=== PATIENT | female | born 1980 ===

== ENCOUNTER → 2020-01-11 13:01 | Outpatient (CLI) | payer OTHER, SELFPAY ==
--- NOTE | ~2020-01-11 | MM_ITS ---
EXAMINATION: MM screening [facility] BI w river HISTORY: Screening mammogram TECHNIQUE: Craniocaudal and mediolateral oblique 3-D tomosynthesis images were obtained and synthetic 2-D images were generated. CAD analysis was submitted and interpreted. COMPARISON: No prior mammogram is available for comparison at this institution. BREAST PARENCHYMAL COMPOSITION: The breasts are almost entirely fatty. FINDINGS: There is no evidence of suspicious mass, calcification, or architectural distortion to sugg est malignancy in either breast. There has been no suspicious interval change. IMPRESSION: 1. No mammographic evidence of malignancy. 2. Recommend routine screening mammography in one year. BI-RADS Category 1: Negative Reviewed, dictated and finalized at location A.
== END ==
PROVIDERS: Visit Provider Nurse Practitioner
DX: Z12.31 Encounter for screening mammogram for malignant neoplasm of breast (principal)
CPT/HCPCS: 77063; 77067

== ENCOUNTER → 2021-01-12 10:28 | Outpatient (CLI) | payer OTHER, SELFPAY ==
--- NOTE | ~2021-01-12 | MM_ITS ---
EXAMINATION: MM screening [facility] BI w river HISTORY: Screening mammogram TECHNIQUE: Craniocaudal and mediolateral oblique 3-D tomosynthesis images were obtained and synthetic 2-D images were generated. CAD analysis was submitted and interpreted. COMPARISON: No prior mammogram is available for comparison at this institution. BREAST PARENCHYMAL COMPOSITION: The breasts are almost entirely fatty. FINDINGS: There is no evidence of suspicious mass, calcification, or architectural distortion to sugg est malignancy in either breast. There has been no suspicious interval change. IMPRESSION: 1. No mammographic evidence of malignancy. 2. Recommend routine screening mammography in one year. BI-RADS Category 1: Negative Reviewed, dictated and finalized at location A.
== END ==
PROVIDERS: Visit Provider Nurse Practitioner
DX: Z12.31 Encounter for screening mammogram for malignant neoplasm of breast (principal)
CPT/HCPCS: 77063; 77067

== ENCOUNTER 2021-07-19 16:04 | Emergency (ER) | payer OTHER, SELFPAY ==
--- NOTE | ~2021-07-19 | XR_ITS ---
XR lumbar spine 2-3V DATE: 07/19/2021 16:57 INDICATION: Low back pain since injury on 07/17/2021 TECHNIQUE: AP, lateral, coned lateral lumbosacral views COMPARISON: None FINDINGS: Normal alignment lumbar spine. No fracture or bone destruction or spondylolisthesis. The cassandra mbar and included lower thoracic pedicles are intact. There is slight anterior spurring at L3-4 and L4-5. The sacroiliac joints are intact. Status post cholecystectomy. IMPRESSION: No fracture Slight degenerative change Reviewed, dictated and finalized at location A.
[2021-07-19 16:15] VITALS: BP 142/89; PULSE 74; RESP 18; TEMP 36.6; O2SAT 98
--- NOTE | 2021-07-19 16:33 | ED.BACK ---
HPI - Back Pain/Injury General Chief Complaint: Back Pain/Injury Stated Complaint: Low Back/Left Hip/Thigh/Work Comp Time Seen by Provider: 07/19/21 16:34 Source: patient Mode of arrival: ambulatory Limitations: no limitations History of Present Illness HPI Narrative: 40-year-old female presented for complaint of low back pain radiating to the left hip. 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 She has not taken anything for pain, states she does not like to take medicine for pain. Rates pain 5 out of 10. Denies numbness, tingling, or weakness of the lower extremities, denies saddle anesthesia or bowel or bladder loss. Pain is worse with sitting too long or walking too long. Related Data Home Medications Medication Instructions Recorded Confirmed rosuvastatin 10 mg PO DAILY 07/19/21 07/19/21 semaglutide [Ozempic] 1 mg SUBCUT WEEKLY 07/19/21 07/19/21 venlafaxine 150 mg PO DAILY 07/19/21 07/19/21 Allergies Allergy/AdvReac Type Severity Reaction Status Date / Time cephalexin Allergy Unknown fever,chills, Verified 07/19/21 16:25 flu like sx's. Review of Systems Review of Systems: CONSTITUTIONAL: Denies body aches, fever, chills EYES: Denies visual changes ENT: Denies rhinorrhea, congestion CARDIOVASCULAR: Denies chest pain, palpitations, or edema. RESPIRATORY: Denies cough or dyspnea. GASTROINTESTINAL: Denies abdominal pain, nausea, vomiting, or diarrhea. SKIN: Denies rash, itching, or wounds. MUSCULOSKELETAL: Reports left lower back pain NEUROLOGIC: Denies headache, numbness, tingling, or weakness. PSYCH: Denies depression or anxiety. All systems reviewed & are unremarkable except as noted in HPI and below PMFSH Comments At time of signature, I have reviewed and agree with nursing past medical, surgical, social and family history unless otherwise noted. Please see nursing chart for further information. There is no relevant family history pertinent to the presenting complaint Exam Narrative: GENERAL: Well-appearing, well-nourished, and in no acute distress. HEAD: Normocephalic, atraumatic. EYES: PERRLA, conjunctivae clear NECK: Supple. CHEST: Speaks in full sentences. No respiratory distress. HEART: Regular rate and rhythm. Normal and equal peripheral pulses. MUSC: No vertebral point tenderness, left hip with mild tenderness to palpation and posterior piriformis area. ambulatory with a steady gait. SKIN: Warm, dry, no rash. NEURO: Alert and oriented x3. PSYCH: Normal mood and affect Course Course Emergency Course: Patient is aware of diagnosis, understands and agrees to treatment plan. Anticipatory guidance given. Patient agrees to follow-up as directed and is aware of reasons to seek care at the emergency department. Portions of this record may have been created with voice recognition software Level of Care: Express Care Visit Vital Signs Vital signs: Vital Signs Temperature 97.8 F 07/19/21 16:15 Pulse Rate 74 07/19/21 16:15 Respiratory Rate 18 07/19/21 16:15 Blood Pressure 142/89 H 07/19/21 16:15 Pulse Oximetry 98 07/19/21 16:15 Temperature 97.8 F 07/19/21 16:15 Pulse Rate 74 07/19/21 16:15 Respiratory Rate 18 07/19/21 16:15 Blood Pressure 142/89 H 07/19/21 16:15 Pulse Oximetry 98 07/19/21 16:15 Reviewed MDM - Back Pain/Injury Differential Diagnosis Differential diagnosis: Likely lumbar radiculopathy, sciatica and strain of lumbar region Medical Records Medical records narrative: xray reviewed. Pt's sx c/w lumbar strain. pt declines Rx muscle relaxer. She is advised on supportive treatment. She plans to see chiropractor. Appropriate for outpt treatment and f/u. Imaging Data Radiologist's impression: Ordering Physician: Kelin Yen APRN Date of Service: 07/19/21 Procedure(s): XR lumbar sp
== END 2021-07-19 17:14 | disposition home or self-care (01) ==
PROVIDERS: Emergency Provider Nurse Practitioner Family; PCP Nurse Practitioner Family
DX: S39.012A Strain of muscle, fascia and tendon of lower back, initial encounter (principal); X50.0XXA Overexertion from strenuous movement or load, initial encounter; E11.9 Type 2 diabetes mellitus without complications
CPT/HCPCS: 72100; 99213; G0463

== ENCOUNTER → 2022-01-25 10:25 | Outpatient (CLI) | payer OTHER, SELFPAY ==
--- NOTE | ~2022-01-25 | MM_ITS ---
EXAMINATION: MM screening mar[facility]o BI w river HISTORY: Screening mammogram TECHNIQUE: Craniocaudal and mediolateral oblique 3-D tomosynthesis images were obtained and synthetic 2-D images were generated. CAD analysis was submitted and interpreted. COMPARISON: 01/12/2021, 01/11/2020 BREAST PARENCHYMAL COMPOSITION: The breasts are almost entirely fatty. FINDINGS: No suspicious mass, calcification, or architectural distortion are identified in either dee dee ast to suggest malignancy. There has been no suspicious interval change. IMPRESSION: 1. No mammographic evidence of malignancy. 2. Recommend routine screening mammography in one year. BI-RADS Category 1: Negative Reviewed, dictated and finalized at location A.
== END ==
PROVIDERS: PCP Nurse Practitioner Family; Visit Provider Nurse Practitioner
DX: Z12.31 Encounter for screening mammogram for malignant neoplasm of breast (principal)
CPT/HCPCS: 77063; 77067

== ENCOUNTER → 2023-02-11 14:01 | Outpatient (CLI) | payer OTHER, SELFPAY ==
--- NOTE | ~2023-02-11 | MM_ITS ---
EXAMINATION: MM screening [facility]o BI w river HISTORY: Screening mammogram TECHNIQUE: Craniocaudal and mediolateral oblique 3-D tomosynthesis images were obtained and synthetic 2-D images were generated. Bilateral rotated lateral CC views. CAD analysis was submitted and interp reted. COMPARISON: 01/25/2022, 01/08/2021, 01/11/2020 bilateral screening mammogram examinations BREAST PARENCHYMAL COMPOSITION: The breasts are almost entirely fatty. FINDINGS: There is no evidence of suspicious mass, calcification, or architectural distortion to sugg est malignancy in either breast. There has been no suspicious interval change. IMPRESSION: 1. No mammographic evidence of malignancy. 2. Recommend routine screening mammography in one year. BI-RADS Category 1: Negative Reviewed, dictated and finalized at location A.
== END ==
PROVIDERS: PCP Nurse Practitioner Family; Visit Provider Nurse Practitioner
DX: Z12.31 Encounter for screening mammogram for malignant neoplasm of breast (principal)
CPT/HCPCS: 77063; 77067

== ENCOUNTER 2023-07-04 08:30 | Emergency (ER) | payer OTHER, SELFPAY ==
[2023-07-04 08:40] VITALS: BP 146/70; PULSE 102; RESP 18; TEMP 36.5; O2SAT 98
--- NOTE | 2023-07-04 08:47 | ED.UPPEXIN ---
HPI - Extremity Injury (Upper) General Chief Complaint: Extremity Injury, Upper Stated Complaint: left shoulder pain Time Seen by Provider: 07/04/23 08:48 Source: patient Mode of arrival: ambulatory Limitations: no limitations History of Present Illness HPI narrative: 42 y/o female with hx DM, presented for c/o left anterior chest, shoulder and shoulder blade pain following an episode of vomiting yesterday. States her BS was low, which caused the vomiting episode. The pain progressed throughout the day. Endorses pain is constant, reproducible/ exacerbated with cough, deep breaths, and any left arm movement. Reports pain is severe, causing her to sweat.Taking Aleve without relief. Denies heart racing, wheezing, abdominal pain,n/v/d/f/c at this time. Reports her CGM reading is 160. Related Data Home Medications Medication Instructions Recorded Confirmed rosuvastatin 10 mg tablet 10 mg PO DAILY 07/19/21 07/04/23 venlafaxine 150 mg 150 mg PO DAILY 07/19/21 07/04/23 capsule,extended release 24 hr dulaglutide 4.5 mg/0.5 mL 4 mg subcut DAILY 07/04/23 07/04/23 subcutaneous pen injector (Trulicity) empagliflozin 25 mg tablet 25 mg PO DAILY 07/04/23 07/04/23 (Jardiance) Allergies Allergy/AdvReac Type Severity Reaction Status Date / Time cephalexin Allergy Unknown fever,chills, Verified 07/04/23 08:46 flu like sx's. Review of Systems Review of Systems: CONSTITUTIONAL: Denies body aches, fever, chills ENT: Denies rhinorrhea, congestion CARDIOVASCULAR: Denies chest pain, palpitations, or edema. RESPIRATORY: Denies cough or dyspnea. GASTROINTESTINAL: Denies abdominal pain, nausea, vomiting, or diarrhea. SKIN: Denies rash, itching, or wounds. MUSCULOSKELETAL: Reports pain to left chest, shoulder, shoulder blade Denies joint pain, or myalgia. NEUROLOGIC: Denies headache, numbness, tingling, or weakness. All systems reviewed & are unremarkable except as noted in HPI and below PMFSH Past Medical History Medical History (Updated 07/04/23 @ 09:46 by Kelin Monte APRN) Diabetes Comments At time of signature, I have reviewed and agree with nursing past medical, surgical, social and family history unless otherwise noted. Please see nursing chart for further information. There is no relevant family history pertinent to the presenting complaint Exam Narrative: GENERAL: appears in pain CHEST: Speaks in full sentences. No respiratory distress. HEART: Regular rate and rhythm. Normal and equal peripheral pulses. ABD: epigastric tenderness, not distended, BS positive. No rigidity, asymmetry or guarding. EXTREMITIES: Left anterior chest tender with palpation, extending to trapezius and tender around scapula. Limited range of motion at shoulder due to pain with any movement. LUE has normal strength and sensation, No ecchymosis, No open wounds, or obvious deformity; alignment normal, pulse palpable and equal bilaterally, skin warm, dry, pink. Capillary refill less than 3 seconds. SKIN: Warm, sweaty; no rash. NEURO: Alert and oriented x3. PSYCH: Normal mood and affect Extrem: Shoulder/upper arm images: 1. location of pain 2. location of pain Course Course Emergency Course: Patient is aware of diagnosis, understands and agrees to treatment plan. Anticipatory guidance given. Patient agrees to follow-up as directed and is aware of reasons to seek care at the emergency department. Portions of this record may have been created with voice recognition software Level of Care: Express Care Visit Vital Signs Vital signs: Vital Signs Temperature 97.7 F 07/04/23 08:40 Pulse Rate 102 H 07/04/23 08:40 Respiratory Rate 18 07/04/23 08:40 Blood Pressure 146/70 H 07/04/23 08:40 Pulse Oximetry 98 07/04/23 08:40 Oxygen Delivery Room Air 07/04/23 08:40 Temperature 97.7 F 07/04/23 08:49 Pulse Rate 102 H 07/04/23 08:49 Respiratory Rate 18 07/04/23 08:49 Blood Pressu
[2023-07-04 08:49] VITALS: BP 146/70; PULSE 102; RESP 18; TEMP 36.5; O2SAT 98
[2023-07-04] MEDS: KETOROLAC (*BKC) 60 MG/2 ML VIAL IM (09:04)
[2023-07-04] MEDS: FAMOTIDINE 20 MG TABLET 40 MG PO (09:05)
== END 2023-07-04 09:47 | disposition home or self-care (01) ==
PROVIDERS: Emergency Provider Nurse Practitioner Family; PCP Nurse Practitioner Family
DX: M25.512 Pain in left shoulder (principal); E07.89 Other specified disorders of thyroid; E11.9 Type 2 diabetes mellitus without complications
CPT/HCPCS: 96372; 99213; A9270; G0463; J1885

== ENCOUNTER 2023-07-04 12:27 | Inpatient (IN) | payer OTHER, SELFPAY ==
[2023-07-04] VITALS (10 sets, daily range): BP systolic 101–140; BP diastolic 61–86; PULSE 102–112; RESP 20–26; TEMP 36.2–36.6; O2SAT 91–100; BMI 41.6
--- NOTE | ~2023-07-04 | US_ITS ---
EXAMINATION: US thoracentesis DATE: 07/11/2023 16:32 INDICATION: Left pleural effusion TECHNIQUE: The procedure and its risks and benefits were discussed with the patient. Potential risks discussed included bleeding, infection, and pneumothorax. The patient understood the risks and agreed to proceed. The skin was prepped and draped in sterile fashion. 1% lidocaine was used for local anes thesia. Under ultrasound guidance, a 5 Fr catheter with trochar was advanced into the left pleural ef fusion. Fluid was aspirated. The catheter was removed, and a dressing was applied. There were no imme diate complications. FINDINGS: Ultrasound images demonstrate a small left pleural effusion and the catheter within the fluid. IMPRESSION: 1. Successful ultrasound-guided thoracentesis yielding 900 mL of cloudy yellowish-brown fluid. Reviewed, dictated and finalized at location A. IMPRESSION: 1. Successful ultrasound-guided thoracentesis yielding 900 mL of cloudy yellow susan-brown fluid.
--- NOTE | ~2023-07-04 | CT_ITS ---
EXAMINATION: CTA chest abdomen pelvis DATE: 07/04/2023 15:02 INDICATION: Shortness of breath. Back pain. TECHNIQUE: Computed tomographic angiography (CTA) of the chest, abdomen, and pelvis was performed wit h 100 mL Omnipaque-350 intravenous contrast. Automated exposure control and iterative reconstruction technique were employed. The dose-length product was 2030.12 mGy-cm. Maximum intensity projection 3D- reconstructions of the aorta and other arteries were constructed by the technologist on a separate wo rkstation. COMPARISON: CT abdomen and pelvis 04/20/2007 FINDINGS: CHEST CTA: The lung volumes are small. There are airspace opacities with air bronchograms in left upper lobe. Th ere is mild atelectasis bilaterally. There is a small left pleural effusion. Cardiomegaly is noted. M ain pulmonary is enlarged, consistent with pulmonary arterial hypertension. No pericardial effusion. Thoracic aorta is normal. There is mild thoracic spondylosis. ABDOMEN AND PELVIS CTA: The liver and spleen are normal. There are changes of cholecystectomy. The pancreas, adrenal glands, and kidneys are normal. There are no dilated loops of bowel. The appendix is normal. There are no pat hologically enlarged lymph nodes. There is no free intraperitoneal fluid. Abdominal aorta is normal. There is mild lumbar spondylosis. IMPRESSION: 1. Left upper lobe pneumonia. 2. Small left pleural effusion. 3. Normal aorta. Reviewed, dictated and finalized at location A.
--- NOTE | ~2023-07-04 | CT_ITS ---
Clinical Indication: Metabolic acidosis, respiratory failure CT Scan of the Chest, Abdomen, and Pelvis with Contrast: Technique: Contiguous sections were acquired throughout the chest, abdomen, and pelvis after intraven ous administration of 100 cc of Omnipaque 350. Dose reduction technique was used on this scan by wilda gloriaing automated exposure control and iterative reconstruction technique. The dose-length product (DL P) was 2581.12 mGy-cm. COMPARISON: 07/04/2023 Findings: There is no evidence of any significant mediastinal, hilar or axillary lymphadenopathy. The mediastin al soft tissues appear normal. No definite large central pulmonary embolus seen. No aortic aneurysm o r dissection. No pericardial effusion. Large left pleural effusion is significantly increased from prior exam, possibly partially loculated superiorly. There is extensive consolidation of the aerated left lung, which could reflect atelectasi s and/or pneumonia. There is groundglass consolidation in the anterior right upper lobe, which could reflect additional pneumonia. The liver, spleen, pancreas, adrenals and kidneys are within normal limits. Cholecystectomy clips are present. No evidence of aortic aneurysm. No lymphadenopathy. No bowel obstruction or bowel wall thickening. There is no evidence to suggest acute appendicitis. Urinary bladder is collapsed around a Baires catheter. No pelvic mass. No ascites. Impression: Large left pleural effusion, significantly increased from prior exam. Extensive left lung consolidation as well as focal right upper lobe consolidation. Findings could ref lect pneumonia and/or atelectasis. Pulmonary edema felt to be less likely given distribution, though not excluded. No pulmonary embolus identified. No significant findings in the abdomen or pelvis. Reviewed, dictated and finalized at [facility]. Impression: Large left pleural effusion, significantly increased from prior exam. Extensive left lung consolidation as well as focal right upper lobe consolidati on. Findings could reflect pneumonia and/or atelectasis. Pulmonary edema felt t o be less likely given distribution, though not excluded. No pulmonary embolus identified. No significant findings in the abdomen or pelvis.
--- NOTE | ~2023-07-04 | XR_ITS ---
Portable chest x-ray Comparison: 07/06/2023 Clinical History: Respiratory distress Findings: Extensive left lung consolidation and present. Right lung remains essentially clear. Card iomediastinal silhouette is stable. Bones and soft tissues are unremarkable. Impression: Stable extensive left lung consolidation. Reviewed, dictated and finalized at location . Impression: Stable extensive left lung consolidation.
--- NOTE | ~2023-07-04 | XR_ITS ---
Portable chest x-ray Comparison: 07/09/2023 Clinical History: Respiratory failure Findings: Endotracheal tube and NG tube remain in place. Left basilar perihilar consolidation or unc hanged. Right lung remains clear. Cardiomediastinal silhouette is stable. Bones and soft tissues are unremarkable. Impression: Stable left lung consolidation. Stable support tubes. Reviewed, dictated and finalized at [facility]. Impression: Stable left lung consolidation. Stable support tubes.
--- NOTE | ~2023-07-04 | XR_ITS ---
XR chest 1V portable 07/12/2023 05:56 Indication: Respiratory failure Procedure: AP portable chest Comparison: Comparison to multiple prior studies sequentially, with oldest reviewed study dated 07/08. Findings: Cardiomegaly. Persistent asymmetric left-sided airspace disease. Endotracheal tube tip 3.2 cm above the nusrat. NG tube in the stomach. Possible small left effusion. Impression: 1: Asymmetric left-sided airspace disease which may represent edema or pneumonia. Reviewed, dictated and finalized at location A. Impression: 1: Asymmetric left-sided airspace disease which may represent edema or pneumoni a.
--- NOTE | ~2023-07-04 | US_ITS ---
EXAMINATION: US venous doppler [facility] DATE: 07/11/2023 16:33 INDICATION: Bilateral lower extremity swelling TECHNIQUE: White scale images without and with compression and Doppler images of the bilateral lower e xtremity veins were obtained. COMPARISON: None FINDINGS: The right common femoral vein, profunda femoral vein, femoral vein, popliteal vein, peroneal trunk, p osterior tibial veins, and greater saphenous vein are patent. The left common femoral vein, profunda femoral vein, femoral vein, popliteal vein, peroneal trunk, po sterior tibial veins, and greater saphenous vein are patent. IMPRESSION: 1. Patent bilateral lower extremity veins. No evidence of deep venous thrombosis. Reviewed, dictated and finalized at location F. IMPRESSION: 1. Patent bilateral lower extremity veins. No evidence of deep venous thrombosi s.
--- NOTE | ~2023-07-04 | XR_ITS ---
Portable chest x-ray Comparison: 07/10/2023 Clinical History: Respiratory failure Findings: Endotracheal tube and NG tube are in place. Moderate left pleural effusion present with le ft basilar and left perihilar consolidation. Right lung clear. Cardiomediastinal silhouette is stabl e. Bones and soft tissues are unremarkable. Impression: Moderate left pleural effusion with left basilar left perihilar consolidation. Stable support tubes. Reviewed, dictated and finalized at location . Impression: Moderate left pleural effusion with left basilar left perihilar consolidation. Stable support tubes.
--- NOTE | ~2023-07-04 | XR_ITS ---
XR chest 1V 07/04/2023 14:58 Indication: Shortness of breath and chest pain Procedure: AP view of the chest Comparison: No prior studies for comparison. Findings: Cardiomegaly. Bilateral airspace disease is present, left greater than right. No significan t effusion. No pneumothorax. No acute osseous abnormality. Impression: 1: Bilateral airspace disease which may represent asymmetric edema or pneumonia. Reviewed, dictated and finalized at location A. Impression: 1: Bilateral airspace disease which may represent asymmetric edema or pneumonia .
--- NOTE | ~2023-07-04 | CT_ITS ---
EXAMINATION: CT chest abdomen pelvis wo con DATE: 07/12/2023 10:10 INDICATION: Fever TECHNIQUE: Computed tomography (CT) of the chest, abdomen and pelvis was performed without intravenou s contrast. The dose-length product was 3172.81 mGy-cm. Automated exposure control and iterative vernon nstruction technique were employed. COMPARISON: 07/08/2023. FINDINGS: Bilateral pleural effusions, left greater than right. There are patchy consolidation of the lungs, left greater than right, with cavitation in the left upper lobe, consistent with pneumonia. T here is an endotracheal tube present. No significant lymphadenopathy. The liver, spleen, pancreas, adrenal glands and kidneys are unremarkable. Status post cholecystectomy . Air-fluid levels present in the colon, possibly ileus. NG tube in the stomach. No significant vascu lar abnormality. No lymphadenopathy. Small fat-containing umbilical hernia. Baires catheter present in the bladder. IMPRESSION: 1. Patchy bilateral airspace consolidation, left greater than right, compatible with pneumonia with n ew areas of cavitation in the left upper lobe. 2: Bilateral pleural effusions, left greater than right. Reviewed, dictated and finalized at location A. IMPRESSION: 1. Patchy bilateral airspace consolidation, left greater than right, compatible with pneumonia with new areas of cavitation in the left upper lobe. 2: Bilateral pleural effusions, left greater than right.
--- NOTE | ~2023-07-04 | XR_ITS ---
EXAMINATION: XR chest 1V portable DATE: 07/11/2023 16:13 INDICATION: Status post thoracentesis TECHNIQUE: frontal view of the chest was obtained. COMPARISON: Chest radiograph dated 07/11/2023 FINDINGS: Endotracheal tube tip 1.4 cm above the nusrat. Nasogastric tube extends below the left hemidiaphragm with distal tip collimated off the study. Improved aeration in the left lower lung zone with resolution or near complete resolution of the prio r left pleural effusion. Persistent airspace opacity left mid and lower lung zone consistent with ate lectasis or pneumonia. Right lung remains clear. No pneumothorax or right-sided pleural effusion. Hea rt size is normal. IMPRESSION: 1. Improved aeration left lower lung zone post thoracentesis with resolution or near complete resolut ion of the prior left pleural effusion. 2. Opacities in the left mid and lower lung zone consistent with atelectasis and/or pneumonia. Reviewed, dictated and finalized at location A. IMPRESSION: 1. Improved aeration left lower lung zone post thoracentesis with resolution or near complete resolution of the prior left pleural effusion. 2. Opacities in the left mid and lower lung zone consistent with atelectasis an d/or pneumonia.
--- NOTE | ~2023-07-04 | XR_ITS ---
EXAMINATION: XR chest 1V portable DATE: 07/06/2023 12:33 INDICATION: Shortness of breath TECHNIQUE: frontal view of the chest was obtained. COMPARISON: Chest radiograph and CT dated 07/04/2023 FINDINGS: Increased opacities in the left mid and lower lung zone consistent with worsening pneumonia. Right cassandra ng remains clear. No pneumothorax or right-sided pleural effusion. Left pleural effusion cannot exclu ded. Left heart border remains obscured. IMPRESSION: 1. Increasing opacities in the left mid and lower lung zone consistent with worsening pneumonia. Kevin ot exclude a superimposed left pleural effusion. Reviewed, dictated and finalized at location A. IMPRESSION: 1. Increasing opacities in the left mid and lower lung zone consistent with wor sening pneumonia. Cannot exclude a superimposed left pleural effusion.
--- NOTE | ~2023-07-04 | XR_ITS ---
EXAMINATION: XR chest ET placement, XR abdomen gastric tube insert DATE: 07/07/2023 12:11 INDICATION: Endotracheal tube and orogastric tube placement TECHNIQUE: 1. Portable AP supine view of the chest was obtained. 2. Portable AP supine view of the upper abdomen was obtained. COMPARISON: Chest and abdominal radiographs dated 07/07/2023 at 3:59 AM FINDINGS: No significant change in position of the endotracheal tube which remains within a few millimeter of t he nusrat. Orogastric tube is again seen extending below the left hemidiaphragm with distal tip andrei imated off the study. Persistent airspace opacities in the left mid and lower lung zone which could represent or atelectasi s and/or pneumonia potentially with superimposed small left pleural effusion. Right lung remains vincent r. No pulmonary edema, pneumothorax or right-sided pleural effusion. Cardiomegaly. IMPRESSION: 1. Endotracheal tube tip within a few millimeter of the nusrat. Consider withdrawal by 1.5 cm. Findin gs were discussed with Ruby, the nurse caring for the patient, at 12:20 PM. 2. No significant change in opacities in the left mid and lower lung zone consistent with atelectasis and/or pneumonia potentially with superimposed small left pleural effusion. 2. Cardiomegaly. Reviewed, dictated and finalized at location A. IMPRESSION: 1. Endotracheal tube tip within a few millimeter of the nusrat. Consider withdr awal by 1.5 cm. Findings were discussed with Ruby, the nurse caring for the pa tient, at 12:20 PM. 2. No significant change in opacities in the left mid and lower lung zone consi stent with atelectasis and/or pneumonia potentially with superimposed small lef t pleural effusion. 2. Cardiomegaly.
--- NOTE | ~2023-07-04 | XR_ITS ---
Supine and upright views of the abdomen Clinical history: OG tube placement Findings: NG tube in satisfactory position. Bowel gas pattern is nonspecific. No evidence for obstruc tion or free air. No abnormal mass lesion or calcification is seen. Osseous structures are intact. Le ft lower lobe consolidation present. Impression: NG tube in satisfactory position. Nonspecific bowel gas pattern. Left lower lobe pulmonary consolidation. Reviewed, dictated and finalized at [facility]. Impression: NG tube in satisfactory position. Nonspecific bowel gas pattern. Left lower lobe pulmonary consolidation.
--- NOTE | ~2023-07-04 | XR_ITS ---
Portable chest x-ray Comparison: 07/08/2023 Clinical History: Respiratory failure Findings: Endotracheal tube and NG tube are in satisfactory positions. Extensive left lower lobe and left perihilar consolidation is similar to prior exam. Right lung essentially clear. Cardiomediasti nal silhouette is stable. Bones and soft tissues are unremarkable. Impression: Stable extensive left lung consolidation. Stable support tubes. Reviewed, dictated and finalized at location . Impression: Stable extensive left lung consolidation. Stable support tubes.
--- NOTE | ~2023-07-04 | XR_ITS ---
Portable chest x-ray Comparison: 07/07/2023 Clinical History: Respiratory failure Findings: Endotracheal tube and NG tube are in place. Extensive left lung consolidation is unchanged , sparing the apex. Right lung remains clear. Cardiomediastinal silhouette is stable. Bones and soft tissues are unremarkable. Impression: Stable extensive left lung consolidation. Stable support tubes. Reviewed, dictated and finalized at location . Impression: Stable extensive left lung consolidation. Stable support tubes.
--- NOTE | ~2023-07-04 | XR_ITS ---
Portable chest x-ray Comparison: 07/07/2023 at 2:51 AM Clinical History: Tube placement Findings: Endotracheal tube is present, tip just above the nusrat. NG tube in place. Probable small left pleural effusion with extensive left basilar and left perihilar consolidation. Right lung clear. Cardiomediastinal silhouette is stable. Bones and soft tissues are unremarkable. Impression: Support tubes in place, as above. Consider mild retraction of ET tube. Extensive left basilar and left perihilar consolidation with probable small left pleural effusion. Reviewed, dictated and finalized at [facility]. Impression: Support tubes in place, as above. Consider mild retraction of ET tube. Extensive left basilar and left perihilar consolidation with probable small lef t pleural effusion.
--- NOTE | 2023-07-04 12:58 | ED.BACK ---
HPI - Back Pain/Injury General Chief Complaint: Back Pain/Injury <Pao Guerra PA-C - Last Filed: 07/04/23 16:44> Stated Complaint: back muscle spasms <JANE Petersen Last Filed: 07/04/23 16:44> Time Seen by Provider: 07/04/23 12:34 <JANE Petersen Last Filed: 07/04/23 16:44> History of Present Illness HPI Narrative: 42-year-old female with history of type 2 diabetes presents to the emergency department for back pain. Patient states she had an episode of emesis yesterday morning after she daughter blood sugar got too low. States since then her left flank has been hurting and it is now radiating up into her shoulder blade and into the left upper anterior chest wall, as well as into the left side of her abdomen. Describes the pain as spasm some states they are taking her breath away. She denies dysuria or hematuria, urinary frequency or urgency, abdominal pain, fever, recent injury or trauma. <JANE Petersen Last Filed: 07/04/23 16:44> Related Data Home Medications: Home Medications Medication Instructions Recorded Confirmed rosuvastatin 10 mg tablet 10 mg PO DAILY 07/19/21 07/04/23 venlafaxine 150 mg 150 mg PO DAILY 07/19/21 07/04/23 capsule,extended release 24 hr dulaglutide 4.5 mg/0.5 mL 4 mg subcut DAILY 07/04/23 07/04/23 subcutaneous pen injector (Trulicity) empagliflozin 25 mg tablet 25 mg PO DAILY 07/04/23 07/04/23 (Jardiance) <JANE Petersen Last Filed: 07/04/23 16:44> Allergies/Adverse Reactions: Allergies Allergy/AdvReac Type Severity Reaction Status Date / Time cephalexin Allergy Unknown fever,chills, Verified 07/04/23 18:13 flu like sx's. piperacillin [From Zosyn] Allergy Hives Verified 07/04/23 18:13 tazobactam [From Zosyn] Allergy Hives Verified 07/04/23 18:13 <JANE Petersen Last Filed: 07/04/23 16:44> Review of Systems Review of Systems: CONSTITUTIONAL: Denies fever, chills, or sweats. EYES: Denies visual changes, redness, or discharge. ENT: Denies rhinorrhea, congestion, sore throat, or otalgia. CARDIOVASCULAR: Denies chest pain, palpitations, or edema. RESPIRATORY: Denies cough or dyspnea. GASTROINTESTINAL: Denies abdominal pain, nausea, vomiting, or diarrhea. GENITOURINARY: Denies dysuria or hematuria. SKIN: Denies rash or itching. MUSCULOSKELETAL: See HPI NEUROLOGIC: Denies headache, numbness, or weakness. PSYCHIATRIC: Denies anxiety or depression. <Pao Guerra PA-C - Last Filed: 07/04/23 16:44> [facility] Past Medical History Medical History: Medical History (Updated 07/04/23 @ 17:13 by Rossi Cochran MD) Diabetes Non-insulin dependent diabetes mellitus <Pao Guerra PA-C - Last Filed: 07/04/23 16:44> Social History Social History: Social History Smoking status: Never smoker Alcohol intake: never Substance use: never Do You Feel Safe in your Home?: Yes Lack of Transportation: No Lack of Food: Never True Current Housing: I Have Housing Concerned About Future Housing: No Difficulty Paying Gas/Electric Bills: No Difficulty Paying for Meds: No Currently Unemployed: No Education: Bachelor's Degree Difficulty w/ Childcare or Family Care: No Spiritual care concerns: No <Pao Guerra PA-C - Last Filed: 07/04/23 16:44> Exam Narrative: GENERAL: Ill-appearing, diaphoretic, writhing in exam bed in pain HEAD: Normocephalic, atraumatic. EYES: PERRLA and EOMI. ENT: Nares clear, no rhinorrhea or epistaxis. Mucous membranes moist. NECK: Supple. CHEST: Clear to auscultation. No respiratory distress. HEART: Regular rate and rhythm. No murmur heard. Normal peripheral pulses. ABDOMEN: Soft, nontender, nondistended, normal active bowel sounds. No rebound, guarding or rigidity. BACK: No midline thoracolumbar spinous tenderness, step-offs or deformities. Tende
[2023-07-04] MEDS: CYCLOBENZAPRINE HCL 10 MG TABLET PO (13:11)
[2023-07-04] MEDS: HYDROcodone/acetaminophen (*CRX) 5-325 MG TABLET 1 TAB PO (13:13)
[2023-07-04] MEDS: LIDOCAINE 5% PATCH 1 PATCH TRANSDERM (13:13)
--- NOTE | 2023-07-04 13:23 | ECG_ITS ---
Measurements Intervals [place] Rate: 106 P: 18 SC: 178 QRS: 179 QRSD: 106 T: 31 QT: 337 QTc: 448 Interpretive Statements SINUS TACHYCARDIA RIGHT AXIS DEVIATION INCOMPLETE RIGHT BUNDLE BRANCH BLOCK LOW QRS VOLTAGE IN PRECORDIAL LEADS PATTERN CONSISTENT WITH PULMONARY DISEASE BASELINE ARTIFACT- II, III, AVF, V3-V6 BORDERLINE ECG NO PREVIOUS ECG AVAILABLE FOR COMPARISON Electronically Signed On 07-04-2023 13:54:18 CDT by Miguel Benito D.O.
[2023-07-04 13:39] LABS: Hematocrit 47.5 % (37.0-47.0); Hemoglobin 15.1 g/dL (12.0-15.0); Mean Corpuscular HGB Conc 31.8 g/dl (32-36); Mean Corpuscular Hemoglobin 28.5 pg (26-34); Mean Corpuscular Volume 89.6 fl (80-100); Mean Platelet Volume 10.1 fl (7.4-10.4); Platelet Count Result 369 k/mm3 (150-375); Red Cell Distribution Width 13.8 % (11.5-14.5); White Blood Count 34.7 K/mm3 (4.5-10.0)
[2023-07-04] MEDS: MORPHINE SULFATE (*CRX) 4 MG/ML INJ IV PUSH (13:46)
[2023-07-04 13:53] LABS: INR 1.3; Partial Thromboplastin Time 37.1 Seconds (22.3-36.8); Prothrombin Time 17.1 Seconds (11.1-14.7)
[2023-07-04 14:14] LABS: Total Cells Counted 100
[2023-07-04 14:16] LABS: Band Neutrophils Percent 32 % (0-6); Lymphocytes Absolute Manual 1.04 K/mm3 (1.1-4.5); Lymphocytes Percent Manual 3 % (18-44); Metamyelocytes Percent 1 %; Monocytes Absolute Manual 1.04 K/mm3 (0.1-0.90); Monocytes Percent Manual 3 % (3-9); Neutrophils Absolute Manual 32.27 K/mm3 (1.7-7.2); Neutrophils Percent Manual 61 % (46-73)
[2023-07-04 14:17] LABS: Platelet Estimate Adequate (Adequate); Schistocytes None Seen
[2023-07-04 14:24] LABS: Add Urine Microscopic? YES; Appearance Urine Cloudy (Clear); Bacteria Urine 1+ /hpf; Bilirubin Urine Negative (Negative); Blood Urine 1+ (Negative); Color Urine Yellow (Yellow); Glucose Urine UA 3+ mg/dL (Negative); Ketones Urine 3+ mg/dL (Negative); Leukocyte Esterase Ur Negative LEU/UL (Negative); Need Manual Microscopic Reviewed; Nitrate Urine Negative (Negative); Non Pathogenic Casts 0-2; Protein Urine 1+ mg/dL (Negative); RBC Urine 0-2 /hpf (0-2); Squamous Epithelial Cell Urine Moderate /hpf (Few); Urobilinogen Urine 0.2 mg/dL (<2.0); pH Urine 5.5 (5.0-9.0)
[2023-07-04] MEDS: fentaNYL CITRATE INJ (*CRX) 100 MCG/2 ML VIAL 25 MCG IV PUSH (14:32)
[2023-07-04 14:43] LABS: Estimated CRCL calculation 95 ml/min; Estimated Glomerular Filt Rate > 60
[2023-07-04 14:53] LABS: Alanine Aminotransferase 72 U/L (6-35); Albumin Level 4.5 g/dL (3.5-5.1); Alkaline Phosphatase 193 U/L (38-126); Anion Gap 18 mmol/L (8-16); Aspartate Amino Transferase 54 U/L (14-36); Bilirubin,Total 1.1 mg/dL (0.2-1.3); Blood Urea Nitrogen 13 mg/dL (7-17); Carbon Dioxide 17 mmol/L (22-30); Chloride 102 mmol/L (98-107); Estimated CRCL calculation 85 ml/min; Estimated Glomerular Filt Rate > 60; Glucose 224 mg/dL (65-110); Lipase 66 U/L (23-300); Sodium 137 mmol/L (137-145)
[2023-07-04] MEDS: SODIUM CHLORIDE 0.9% IV 1,000 ML 999 ML IV CONT ×3 (15:04→15:05)
[2023-07-04 15:05] LABS: NT Pro B Type Natriuretic Pept 476 pg/mL (19.9-100); Troponin I < 0.012 ng/mL (0.000-0.034)
[2023-07-04] MEDS: HYDROmorphone HCL INJ (*CRX) 1 MG/ML SYR IV PUSH (15:14)
[2023-07-04] MEDS: PIPERACILLIN/TAZ 4.5G/NS 100ML 4.5 GM/100 ML BAG IVPB (15:31)
[2023-07-04 16:07] LABS: CRP > 45.0 mg/dL (<1.0)
[2023-07-04] MEDS: IPRATROPIUM 0.5 MG/ALBUTEROL SULFATE 2.5 MG AMPUL.NEB 3 ML INHALATION (16:15)
[2023-07-04] MEDS: diphenhydrAMINE HCl INJ 50 MG/ML VIAL IV PUSH (16:27)
[2023-07-04] MEDS: FAMOTIDINE 20 MG/2 ML VIAL IV PUSH (16:27)
--- NOTE | 2023-07-04 16:31 | PC.NURSE ---
Pt called out stating she was having a hard time breathing. This RN walked into pts room to find the pt flushed with hives on her face, and audibly wheezing after receiving Zosyn. Verbal order from Dr. Wells for 50 mg Benadryl and a duo-neb treatment. RORO Cedeno gave verbal order for 20 mg of Pepcid while at bedside. Meds were administered and pt sx are beginning to subside.
[2023-07-04 16:37] LABS: Influenza A QL RT-PCR Negative (Negative); Influenza B QL RT-PCR Negative (Negative); RSV RNA, RT-PCR Negative (Negative); SARS-CoV-2 RNA PCR Positive (Negative)
--- NOTE | 2023-07-04 16:56 | PM.IMHP ---
H&P: HPI History of Present Illness Date/Time: 07/04/23 16:56 Chief Complaint: Pleuritic chest pain Narrative: 42-year-old female with past medical history [id number] diabetes mellitus, anxiety presents with the sudden onset of back pain and pleuritic chest pain. Approximately a week ago the patient had upper respiratory symptoms and she took Mucinex and the symptoms resolved. A day prior to admission the patient had an episode of emesis. Since then she has had sharp left-sided chest pain worse upon breathing which radiates into her left shoulder left upper back left flank and left-sided abdomen. She reports coughing 1 time in the shower with a small amount of white mucus. In the [place] ER she was found to have a left upper lobe pneumonia and small left pleural effusion by way of CTA of chest abdomen pelvis. Found to have leukocytosis with bandemia, lactic acidosis, anion gap metabolic acidosis, transaminitis, elevated CRP, elevated proBNP. Urinalysis abnormal although contaminated. COVID positive. She was given large volume fluid resuscitation along with vancomycin and Zosyn. Just after Zosyn the patient broke out in hives but improved after receiving Pepcid Benadryl. He was also given multiple p.o. and IV pain medications including narcotics to help relieve her muscle spasms and pain. Blood cultures obtained prior to antibiotic administration. Review of Systems Review of Systems: All systems reviewed & are unremarkable except as noted in HPI and below (Subjective) [facility] Past Medical History Medical History (Updated 07/04/23 @ 17:13 by Rossi Cochran MD) Diabetes Non-insulin dependent diabetes mellitus Meds Home Medications and Allergies Home Medications Medication Instructions Recorded Confirmed Type rosuvastatin 10 mg tablet 10 mg PO DAILY 07/19/21 07/04/23 History venlafaxine 150 mg 150 mg PO DAILY 07/19/21 07/04/23 History capsule,extended release 24 hr cyclobenzaprine 10 mg tablet 10 mg PO TID PRN muscle spasm #10 07/04/23 Rx tabs dulaglutide 4.5 mg/0.5 mL 4 mg subcut DAILY 07/04/23 07/04/23 History subcutaneous pen injector (Trulicity) empagliflozin 25 mg tablet 25 mg PO DAILY 07/04/23 07/04/23 History (Jardiance) pantoprazole 40 mg tablet,delayed 40 mg PO QAM 7 days #7 tabs 07/04/23 Rx release (Protonix) Allergies Allergy/AdvReac Type Severity Reaction Status Date / Time cephalexin Allergy Unknown fever,chills, Verified 07/04/23 08:46 flu like sx's. piperacillin [From Zosyn] Allergy Hives Verified 07/04/23 17:16 tazobactam [From Zosyn] Allergy Hives Verified 07/04/23 17:16 Vital Signs Vital Signs - 24 hr 07/04/23 12:28 07/04/23 15:03 07/04/23 15:16 Temperature 97.6 F Pulse Rate 106 H 108 H 107 H Respiratory Rate 20 26 H 22 H Blood Pressure 101/77 140/86 129/78 Pulse Oximetry 100 95 96 07/04/23 16:01 07/04/23 16:22 07/04/23 16:32 Temperature Pulse Rate 102 H 106 H 106 H Respiratory Rate 24 H 20 20 Blood Pressure 129/81 Pulse Oximetry 96 07/04/23 16:34 Temperature Pulse Rate 104 H Respiratory Rate 23 H Blood Pressure 130/73 Pulse Oximetry 97 Exam Const: General: comfortable and no acute distress Other: Sitting up in bed. Observed to refrain from taking deep breaths due to pain. at bedside Eyes: Pupils: Equal, round and reactive pupils present Neck: Neck: supple Resp: Auscultation: no crackles, no rales and no rhonchi Other: Unable to take deep respirations. Cardio: Rate: regular rate Rhythm: regular rhythm Heart sounds: no gallops, no murmurs and no rubs GI: GI Palp: Yes Soft to palpation and No Tenderness to palpation present (GI) : General: Yes bladder normal to palpation Extrem: General: no edema H&P: Results Labs Labs: Short CBC 07/04/23 Range/Units 13:30 WBC 34.7 H (4.5-10.0) K/mm3 Hgb 15.1 H (12.0-15.0) g/dL Hct 47.5 H (37.0-47.0) % P
[2023-07-04 17:25] LABS: Reflex Lactic Acid Yes or No Add Lactic
--- NOTE | 2023-07-04 17:25 | ADMGEN ---
This patient, Lore Regan, was admitted to [facility] Surg Room 325-02. Patient/family oriented to hospital policies and general routines including ID bracelet, bed and alarms, visiting hours, pain management, procedures, bathroom and other care routines, personal items, smoking policy, room service/diet, and visiting hours. Reviewed isolation precautions and procedures. Information on how to activate the Rapid Response Team has been discussed. Patient/Family are encouraged to report perceived risks to care and to ask questions if they do not understand what they are told or what they should do.
[2023-07-04 17:58] LABS: Glucose Point of Care 178 mg/dl (65-105)
[2023-07-04] MEDS: levoFLOXacin 750 MG/D5W 150 ML 750 MG/150 ML BAG 100 MG IVPB (18:01)
[2023-07-04 19:56] LABS: Lactic Acid 2.5 mmol/L (0.7-2.0)
[2023-07-04] MEDS: traMADol HCL (*CRX) 25 MG TABLET PO (20:17)
[2023-07-04] MEDS: INSULIN ASPART (*BKC) 100 UNITS/ML SUB-Q (20:18)
[2023-07-04 21:16] LABS: Glucose Point of Care 211 mg/dl (65-105)
[2023-07-04] MEDS: SODIUM CHLORIDE 0.9% IV 500 ML IV CONT (22:32)
[2023-07-04] MEDS: HYDROmorphone HCL INJ (*CRX) 1 MG/ML SYR 0.5 MG IV PUSH (22:36)
[2023-07-05] VITALS (10 sets, daily range): BP systolic 124–149; BP diastolic 80–92; PULSE 97–115; RESP 20; TEMP 36.2–36.3; O2SAT 91–98
[2023-07-05 00:28] LABS: Lactic Acid Reflex 1.8 mmol/L (0.7-2.0)
[2023-07-05] MEDS: HYDROmorphone HCL INJ (*CRX) 1 MG/ML SYR 0.5 MG IV PUSH ×6 (03:18→22:18)
[2023-07-05] MEDS: traMADol HCL (*CRX) 25 MG TABLET PO ×2 (06:03→13:26)
[2023-07-05 06:59] LABS: Hemoglobin 12.5 g/dL (12.0-15.0); Mean Corpuscular HGB Conc 31.3 g/dl (32-36); Mean Corpuscular Hemoglobin 28.5 pg (26-34); Mean Corpuscular Volume 91.1 fl (80-100); Mean Platelet Volume 9.8 fl (7.4-10.4); Platelet Count Result 289 k/mm3 (150-375); Red Blood Count 4.39 M/mm3 (4.2-5.4); Red Cell Distribution Width 13.8 % (11.5-14.5); White Blood Count 30.3 K/mm3 (4.5-10.0)
[2023-07-05 07:21] LABS: Glucose Point of Care 112 mg/dl (65-105)
[2023-07-05 07:42] LABS: Band Neutrophils Percent 43 % (0-6); Basophils Percent Manual 1 % (0-1); Monocytes Percent Manual 1 % (3-9); Neutrophils Absolute Manual 28.78 K/mm3 (1.7-7.2); Neutrophils Percent Manual 52 % (46-73); Total Cells Counted 100
[2023-07-05 07:43] LABS: Platelet Estimate Adequate (Adequate)
[2023-07-05 07:44] LABS: Schistocytes None Seen
[2023-07-05] MEDS: ENOXAPARIN 40 MG/0.4 ML SYRINGE SUB-Q (08:08)
[2023-07-05 08:18] LABS: Alanine Aminotransferase 52 U/L (6-35); Albumin Level 3.6 g/dL (3.5-5.1); Alkaline Phosphatase 171 U/L (38-126); Anion Gap 12 mmol/L (8-16); Aspartate Amino Transferase 34 U/L (14-36); Bilirubin,Total 0.6 mg/dL (0.2-1.3); Blood Urea Nitrogen 13 mg/dL (7-17); Calcium 8.2 mg/dL (8.4-10.2); Carbon Dioxide 16 mmol/L (22-30); Chloride 107 mmol/L (98-107); Estimated CRCL calculation 125 ml/min; Estimated Glomerular Filt Rate > 60; Glucose 132 mg/dL (65-110); Magnesium 2.1 mg/dL (1.6-2.3); Potassium 3.7 mmol/L (3.4-5.0); Sodium 135 mmol/L (137-145)
[2023-07-05 08:36] LABS: CRP > 45.0 mg/dL (<1.0)
[2023-07-05] MEDS: diphenhydrAMINE HCl CAP 25 MG CAPSULE PO ×2 (09:51→15:45)
[2023-07-05] MEDS: VENLAFAXINE HCL XR 75 MG CAP.ER.24H 150 MG PO (09:51)
[2023-07-05] MEDS: guaiFENesin 12 HR 600 MG TABCR PO ×2 (09:51→22:17)
[2023-07-05] MEDS: ROSUVASTATIN 10 MG TABLET PO (09:51)
[2023-07-05] MEDS: ALBUTEROL SULFATE (*SP) AEROSOL 1 PUFF 2 PUFF INHALATION ×2 (09:53→15:50)
[2023-07-05 11:44] LABS: Glucose Point of Care 126 mg/dl (65-105)
--- NOTE | 2023-07-05 14:40 | PM.IMPN ---
Progress Note: A&P Assessment and Plan (1) Left upper lobe pneumonia: Qualifiers: Pneumonia type: due to unspecified organism Qualified Code(s): J18.9 - Pneumonia, unspecified organism Code(s): J18.9 - Pneumonia, unspecified organism Status: Acute Assessment and Plan: CTA demonstrates left upper lobe pneumonia She has no oxygen requirement Continue IV Levaquin Sputum culture pending Continue supportive care. Bronchodilators, expectorants, incentive spirometry, Cornet valve (2) Sepsis: Qualifiers: Sepsis acute organ dysfunction status: unspecified Sepsis type: sepsis due to unspecified organism Qualified Code(s): A41.9 - Sepsis, unspecified organism Code(s): A41.9 - Sepsis, unspecified organism Status: Acute Assessment and Plan: Secondary to above WBC remains elevated, 30.3 Lactic acid 2.5 on admission. Levels have normalized, 1.8 today Mildly tachycardic Remains afebrile LFTs trending down Trend CRP (3) COVID-19: Code(s): U07.1 - COVID-19 Status: Acute Assessment and Plan: COVID PCR positive on admission No oxygen requirement Continue supportive care (4) Pleural effusion on left: Code(s): J90 - Pleural effusion, not elsewhere classified Status: Acute Assessment and Plan: Small left pleural effusion noted on CTA Likely secondary to above (5) Non-insulin dependent diabetes mellitus: Status: Acute Assessment and Plan: Blood sugars are well controlled Continue Accu-Cheks, sliding scale insulin, hypoglycemic protocol Home Jardiance on hold (6) Abnormal urinalysis: Code(s): R82.90 - Unspecified abnormal findings in urine Status: Acute Assessment and Plan: UA abnormal on presentation Urine culture is pending Continue IV Levaquin while awaiting culture results Plan Noted to have allergic response with Zosyn. Received Benadryl and Pepcid with resolution of symptoms. This has been added to her allergy list. Subjective Date/time seen: 07/05/23 14:40 Interval history: Lore is feeling a little better today. She continues to endorse SOB, DIAZ, and conversational dyspnea. She reports cough productive of dark brown sputum. No hemoptysis. She complains of pleuritic chest pain worse with cough or deep inspiration. Denies palpitations. She is tolerating her diet. Denies nausea, vomiting, fever, chills. Review of Systems Review of Systems: All systems reviewed & are unremarkable except as noted in HPI and below Exam Narrative: General: well-nourished, well-appearing 42-year-old female, sitting up in bed, comfortable, NARD Neuro: awake, alert and oriented x4, speech clear, no focal neuro deficits noted HEENMT: normocephalic, atraumatic, EOMI, sclerae anicteric Respiratory: Diminished breath sounds bilaterally, no wheezing, nonlabored breathing Cardio: regular rate, regular rhythm with S1-S2 Abdomen: nondistended, normoactive bowel sounds, soft, nontender to palpation Extremities: no edema, erythema, or tenderness to palpation Skin: no rashes or lesions, warm and dry Psych: appropriate mood and affect, judgment and insight intact Objective Data Vital Signs Vital Signs: Vital Signs - 24 hr 07/04/23 15:03 07/04/23 15:16 07/04/23 16:01 Temperature Pulse Rate 108 H 107 H 102 H Respiratory Rate 26 H 22 H 24 H Blood Pressure 140/86 129/78 129/81 Pulse Oximetry 95 96 96 Oxygen Delivery 07/04/23 16:22 07/04/23 16:32 07/04/23 16:34 Temperature Pulse Rate 106 H 106 H 104 H Respiratory Rate 20 20 23 H Blood Pressure 130/73 Pulse Oximetry 97 Oxygen Delivery 07/04/23 17:25 07/04/23 18:10 07/04/23 21:20 Temperature 97.2 F L 97.9 F Pulse Rate 108 H 112 H Respiratory Rate 20 20 Blood Pressure 109/61 125/69 Pulse Oximetry 91 100 Oxygen Delivery Room Air 07/04/23 20:00 07/05/23 00:16 07/05/23 04:
[2023-07-05 16:58] LABS: Glucose Point of Care 136 mg/dl (65-105)
[2023-07-05] MEDS: levoFLOXacin 750 MG/D5W 150 ML 750 MG/150 ML BAG 100 MG IVPB (17:36)
[2023-07-05 20:46] LABS: Glucose Point of Care 130 mg/dl (65-105)
[2023-07-05] MEDS: INSULIN ASPART (*BKC) 100 UNITS/ML SUB-Q (22:17)
[2023-07-06] MEDS: HYDROmorphone HCL INJ (*CRX) 1 MG/ML SYR 0.5 MG IV PUSH ×3 (01:34→07:56)
[2023-07-06] MEDS: ALBUTEROL SULFATE (*SP) AEROSOL 1 PUFF 2 PUFF INHALATION (01:48)
[2023-07-06 04:35] VITALS: BP 165/91; PULSE 110; RESP 22; TEMP 36.9; O2SAT 95
[2023-07-06 06:34] LABS: Hematocrit 39.7 % (37.0-47.0); Hemoglobin 12.3 g/dL (12.0-15.0); Mean Corpuscular Hemoglobin 28.9 pg (26-34); Mean Corpuscular Volume 93.2 fl (80-100); Mean Platelet Volume 9.9 fl (7.4-10.4); Platelet Count Result 310 k/mm3 (150-375); Red Blood Count 4.26 M/mm3 (4.2-5.4); Red Cell Distribution Width 14.2 % (11.5-14.5); White Blood Count 26.9 K/mm3 (4.5-10.0)
[2023-07-06 07:39] LABS: Glucose Point of Care 112 mg/dl (65-105)
[2023-07-06 07:49] LABS: Alanine Aminotransferase 40 U/L (6-35); Albumin Level 3.6 g/dL (3.5-5.1); Alkaline Phosphatase 212 U/L (38-126); Anion Gap 17 mmol/L (8-16); Aspartate Amino Transferase 28 U/L (14-36); Bilirubin,Total 0.6 mg/dL (0.2-1.3); Blood Urea Nitrogen 12 mg/dL (7-17); CRP > 45.0 mg/dL (<1.0); Calcium 9.1 mg/dL (8.4-10.2); Carbon Dioxide 13 mmol/L (22-30); Chloride 105 mmol/L (98-107); Estimated CRCL calculation 125 ml/min; Estimated Glomerular Filt Rate > 60; Glucose 116 mg/dL (65-110); Potassium 3.4 mmol/L (3.4-5.0); Sodium 135 mmol/L (137-145)
[2023-07-06] MEDS: ENOXAPARIN 40 MG/0.4 ML SYRINGE SUB-Q (07:58)
[2023-07-06] MEDS: ROSUVASTATIN 10 MG TABLET PO (08:00)
[2023-07-06] MEDS: guaiFENesin 12 HR 600 MG TABCR PO ×2 (08:00→21:47)
[2023-07-06] MEDS: VENLAFAXINE HCL XR 75 MG CAP.ER.24H 150 MG PO (08:00)
[2023-07-06] MEDS: BENZONATATE 100 MG CAPSULE 200 MG PO ×3 (08:30→16:45)
[2023-07-06 11:51] LABS: Glucose Point of Care 98 mg/dl (65-105)
--- NOTE | 2023-07-06 12:35 | PM.IMPN ---
Progress Note: A&P Assessment and Plan (1) Left upper lobe pneumonia: Qualifiers: Pneumonia type: due to unspecified organism Qualified Code(s): J18.9 - Pneumonia, unspecified organism Code(s): J18.9 - Pneumonia, unspecified organism Status: Acute Assessment and Plan: CTA demonstrates left upper lobe pneumonia She has no oxygen requirement Continue IV Levaquin Sputum culture pending Continue supportive care. Bronchodilators, expectorants, incentive spirometry, Cornet valve (2) Sepsis: Qualifiers: Sepsis acute organ dysfunction status: unspecified Sepsis type: sepsis due to unspecified organism Qualified Code(s): A41.9 - Sepsis, unspecified organism Code(s): A41.9 - Sepsis, unspecified organism Status: Acute Assessment and Plan: Secondary to above WBC remains elevated, 26.9 Lactic acid 2.5 on admission. Levels have normalized, Mildly tachycardic Remains afebrile LFTs trending down continue Trend CRP (3) COVID-19: Code(s): U07.1 - COVID-19 Status: Acute Assessment and Plan: COVID PCR positive on admission No oxygen requirement Continue supportive care (4) Pleural effusion on left: Code(s): J90 - Pleural effusion, not elsewhere classified Status: Acute Assessment and Plan: Small left pleural effusion noted on CTA Likely secondary to above (5) Non-insulin dependent diabetes mellitus: Status: Acute Assessment and Plan: Blood sugars are well controlled Continue Accu-Cheks, sliding scale insulin, hypoglycemic protocol Home Jardiance on hold (6) Abnormal urinalysis: Code(s): R82.90 - Unspecified abnormal findings in urine Status: Acute Assessment and Plan: UA abnormal on presentation Urine culture is pending Continue IV Levaquin while awaiting culture results (7) Anxiety: Code(s): F41.9 - Anxiety disorder, unspecified Status: Acute Assessment and Plan: -patient has history of anxiety, she admits she is anxious about her diagnosis and plan -she is complaining of facial flushing, redness and anxiety -give Atarax 12.5 mg every 6 hours, for itching and anxiety Plan Noted to have allergic response with Zosyn. Received Benadryl and Pepcid with resolution of symptoms. This has been added to her allergy list. Subjective Date/time seen: 07/06/23 12:35 Interval history: Chief Complaint: Pleuritic chest pain Narrative: 42-year-old female with past medical history [id number] diabetes mellitus, anxiety presents with the sudden onset of back pain and pleuritic chest pain.? Approximately a week ago the patient had upper respiratory symptoms and she took Mucinex and the symptoms resolved.? A day prior to admission the patient had an episode of emesis.? Since then she has had sharp left-sided chest pain worse upon breathing which radiates into her left shoulder left upper back left flank and left-sided abdomen.? She reports coughing 1 time in the shower with a small amount of white mucus.? In the [place] [facility] she was found to have a left upper lobe pneumonia and small left pleural effusion by way of CTA of chest abdomen pelvis.? Found to have leukocytosis with bandemia, lactic acidosis, anion gap metabolic acidosis, transaminitis, elevated CRP, elevated proBNP.? Urinalysis abnormal although contaminated.? COVID positive.? She was given large volume fluid resuscitation along with vancomycin and Zosyn.? Just after Zosyn the patient broke out in hives but improved after receiving Pepcid Benadryl.? He was also given multiple p.o. and IV pain medications including narcotics to help relieve her muscle spasms and pain.? Blood cultures obtained prior to antibiotic administration. Interval Hx: 07/06/2023: assumed care for pt today Pt seen this am, she is sitting up, by the bedside patient continues to endorse SOB, DIAZ and conversational d
[2023-07-06] MEDS: HYDROcodone/acetaminophen (*CRX) 5-325 MG TABLET 1 TAB PO ×2 (13:06→21:46)
[2023-07-06] MEDS: hydrOXYzine HCL 12.5 MG TABLET PO ×2 (13:34→21:47)
[2023-07-06 14:00] VITALS: BP 156/100; PULSE 108; RESP 22; TEMP 36.9; O2SAT 93
[2023-07-06 15:39] LABS: Alveolar/Arterial O2 Gradient 45.8 mmHg; Fractional Inspired Oxygen 21 %; HCO3 ABG 11.3 mEq/l (22.0-26.0); Oxygen Content ABG 17.9 %vol (16.0-22.0); Oxygen Saturation ABG 92.8 % (95.0-100.0); Oxyhemoglobin 92.8 % THb (90.0-100.0); PCO2 ABG 25.9 mmHg (35.0-45.0); PO2 ABG 72.9 mmHg (80.0-100.0); PO2 FiO2 Ratio Arterial Blood 3.47 %; Total Hemoglobin 13.7 g/dL (12.0-18.0)
[2023-07-06 15:41] LABS: Device ROOM AIR; Modified Allen's Test Pass; Site Drawn RIGHT RADIAL; pH ABG 7.259 (7.350-7.450)
[2023-07-06] MEDS: SODIUM BICARBONATE 8.4% 100 MEQ in DEXTROSE 5% 1,000 ML 1,000 ML 50 MEQ IV CONT (15:55)
[2023-07-06] MEDS: SODIUM CHLORIDE 0.9% IV 500 ML 100 ML IV CONT (15:56)
[2023-07-06 16:20] LABS: Lactic Acid Reflex 0.9 mmol/L (0.7-2.0)
[2023-07-06] MEDS: POTASSIUM CHLORIDE INJ 40 MEQ in SODIUM CHLORIDE 0.9% IV 500 ML 130 MEQ IVPB (16:46)
[2023-07-06] MEDS: levoFLOXacin 750 MG/D5W 150 ML 750 MG/150 ML BAG 100 MG IVPB (16:46)
[2023-07-06 16:57] LABS: Glucose Point of Care 88 mg/dl (65-105)
[2023-07-06 17:09] LABS: MRSA (PCR) NOT DETECTED (NOT DETECTE)
[2023-07-06 20:00] VITALS: PULSE 120
[2023-07-06 20:14] VITALS: BP 140/77; PULSE 116; RESP 22; TEMP 36.6; O2SAT 98
--- NOTE | 2023-07-06 20:42 | PC.NURSE ---
called for an update on patient. Advised we are monitoring both heart & O2 levels in this dept. Discussed patient is currently on 2L NC and oxygen sat levels are good. No results back on blood cultures or u/a at this time.
[2023-07-06 20:46] LABS: Glucose Point of Care 120 mg/dl (65-105)
[2023-07-06] MEDS: ONDANSETRON INJ 4 MG/2 ML VIAL IV PUSH (21:47)
[2023-07-06 22:00] VITALS: PULSE 110; O2SAT 100
[2023-07-06 22:30] VITALS: O2SAT 96
[2023-07-07] VITALS (49 sets, daily range): BP systolic 94–159; BP diastolic 40–112; PULSE 84–200; RESP 20–38; TEMP 36.2–37.7; O2SAT 85–100; BMI 41.6
--- NOTE | 2023-07-07 | ECHO_ITS ---
Patient Info Name: Lore Regan Age: 42 years : 1980 Gender: Female Ht: 64 in Wt: 242 lbs BSA: 2.28 m2 HR: 99 bpm BP: 103 / 74 mmHg Heart Rhythm: Sinus Rhythm Technical Quality: Fair Exam Date: 07/07/2023 2:51 PM Exam Location: Echo Lab Patient Status: Inpatient Admit Date: 07/06/2023 Staff Ordering Physician: Bel Lui DO [employer] Pens Assembler: Jerrica Gutiérrez RDCS Attending Provider: Abiodun Bee MD Referring Physician: Sania GONZALEZ; Exam Type: CA echo dop color flow w con Study Info Indications - new onset Afib, respiratory failure Complete two-dimensional, color flow and Doppler transthoracic echocardiogram is performed with contrast to opacify the left ventricle and to improve the deliniation of the left ventricle endocardial borders. Contrast/Agitated Saline Contrast/Ag. Saline: Definity Amount: 2.00 ml Administered By: Jerrica Gutiérrez RDCS Existing IV Access: Yes IV Access Condition: patent with no signs of infiltration Summary 1. Technically somewhat challenging exam with patient on mechanical ventilator. 2. Hyperdynamic left and right ventricular systolic function suggesting a state of increased I inotropic stimulation. 3. No valvular dysfunction identified. 4. No pericardial effusion. Left Ventricle Left ventricular chamber dimension is normal. Left ventricular systolic function is hyperdynamic, estimated at >70%. The left ventricular diastolic function is normal. Right Ventricle Right ventricular chamber dimension is normal. Left Atria Left atrial chamber dimension is normal. Right Atria Right atrial chamber dimension is normal. Aortic Valve The aortic valve is normal. Pulmonic Valve The pulmonic valve is not well visualized. Mitral Valve The mitral valve has normal leaflets. Tricuspid Valve The tricuspid valve leaflets are normal. Pericardium/Pleural The pericardium appears normal. Aorta The aortic root size at the sinus of Valsalva is normal. Left Ventricular Outflow Tract Name Value Normal LVOT 2D LVOT Diameter 1.97 cm LVOT Doppler LVOT Peak Gradient 6 mmHg LVOT Mean Gradient 3 mmHg LVOT VTI 19.66 cm LVOT VTI/AV VTI Ratio 0.83 LVOT Stroke Volume 59.82 ml LVOT CO 5.77 l/min LVOT CI 2.52 L/min/m2 Pulmonic Valve Name Value Normal RVOT Doppler RVOT Peak Gradient 2 mmHg PV Doppler PV Peak Gradient 5 mmHg Mitral Valve Name Value Normal MV Doppler -
[2023-07-07] MEDS: BENZOCAINE/MENTHOL (*BKC) 18 EA LOZENGE 1 LOZENGE PO (00:09)
[2023-07-07] MEDS: LEVALBUTEROL HFA (*SP) 15 GM INHALER 2 PUFF INHALATION (00:10)
[2023-07-07] MEDS: LORazepam INJ (*CRX) 2 MG/ML VIAL 1 MG IV PUSH (00:10)
[2023-07-07] MEDS: SODIUM BICARBONATE 8.4% 50 MEQ/50 ML SYRINGE IV PUSH ×3 (02:48→10:11)
[2023-07-07] MEDS: PROMETHAZINE HCL 25 MG/ML AMPUL IM (02:50)
[2023-07-07] MEDS: dexAMETHasone SOD PHOS INJ 10 MG/ML 1 ML VIAL IV PUSH (02:50)
[2023-07-07] MEDS: racEPINEPHrine 2.25% NEBU SOLN 0.5 ML VIAL.NEB INHALATION (02:51)
[2023-07-07] MEDS: IPRATROPIUM 0.5 MG/ALBUTEROL SULFATE 2.5 MG AMPUL.NEB 3 ML INHALATION (02:51)
--- NOTE | 2023-07-07 02:59 | ECG_ITS ---
Measurements Intervals [place] Rate: 202 P: [place]: 0 QRS: 70 QRSD: 107 T: 0 QT: 230 QTc: 422 Interpretive Statements ATRIAL FIBRILLATION WITH RAPID VENTRICULAR RESPONSE DELAYED PRECORDIAL R/S TRANSITION BORDERLINE ST-T WAVE ABNORMALITY- INFERIOR LEADS BASELINE ARTIFACT- I, II, III, AVR, AVL, AVF, V1-V2 ABNORMAL ECG COMPARED TO ECG 07/04/2023 13:51:25 ATRIAL FIBRILLATION NOW PRESENT ST (T WAVE) DEVIATION NOW PRESENT Electronically Signed On 07-07-2023 7:05:16 CDT by Miguel Benito D.O.
--- NOTE | 2023-07-07 03:05 | PC.NURSE ---
This patient, Lore Regan, was received from [facility] on 07/07/23 at 0305 following rapid response. Patient/family oriented to unit policies and routines. Beside report received from SHREYAS Gonzalez.
[2023-07-07] MEDS: ETOMIDATE 20 MG/10 ML AMPUL 30 MG IV PUSH (03:21)
[2023-07-07] MEDS: SUCCINYLCHOLINE CHLORIDE 20 MG/ML 10 ML VIAL 100 MG IV PUSH ×2 (03:23→11:45)
[2023-07-07] MEDS: ETOMIDATE 20 MG/10 ML AMPUL 10 MG IV PUSH (03:26)
--- NOTE | 2023-07-07 03:34 | PC.NURSE ---
Attempted to reach ,Kory Regan, at [phone] for update on patient change in condition/ transfer to ICU. Message left to call ICU for update.
[2023-07-07] MEDS: PROPOFOL IV EMULSION 100 ML 19.8 MG IV CONT (03:35)
[2023-07-07] MEDS: MIDAZOLAM HCL (*CRX) 2 MG/2 ML VIAL IV PUSH ×3 (03:52→12:11)
--- NOTE | 2023-07-07 03:53 | WPDPROCEDUR ---
Procedures Intubation Intubation Date: 07/07/23 Intubation Time: 03:40 A pre-procedural Time-Out was completed immediately before starting the procedure and confirmed: Patient Identification, Site, Procedure, Patient Position and the Availability of Requisite Equipment: Yes Sedative: etomidate Mg given: 40 Paralytic: succinylcholine Mg given: 100 Laryngoscope: fiber optic video scope ET tube size: 7.5 Tube secured depth (cm): 25 Tube secured location: teeth Tube placement confirmation: visualized tube passing through cords, equal breath sounds bilaterally, no breath sounds over epigastrium and confirmation by capnometry Patient tolerated procedure: well Intubation complications: hypoxia Additional comments: Patient's airway was anterior. The patient required additional etomidate for a total dose of 40 mg. Repeat attempt made after patient was bagged with bag valve mask. Preintubation O2 sats were between 82 and 96%. Patient's O2 sats did drop briefly down to 66% during 2nd attempt but improved rapidly after ET tube placement. Post intubation x-ray has been ordered. ET tube was 1 cm from the nusrat ET tube was pulled back 2 cm. X-ray appears stable compared to prior, no evidence of pneumothorax.
[2023-07-07] MEDS: METOPROLOL TARTRATE INJ 5 MG/5 ML VIAL IV PUSH ×3 (04:21→05:14)
--- NOTE | 2023-07-07 04:30 | PC.NURSE ---
Reassessed patient and found patient hyperventilating with audible stridor. Heart rate elevated suddenly to the 200's. [employer] called at [phone].
[2023-07-07 04:40] LABS: Basophils Percent Auto 0.1 % (0.2-1.2); Eosinophils Percent Auto 0.1 % (0-4.4); Hematocrit 44.8 % (37.0-47.0); Hemoglobin 13.5 g/dL (12.0-15.0); Immature Granulocyte Percent A 5.5 % (0-0.5); Lymphocytes Absolute Auto 2.44 K/mm3 (0.9-3.2); Lymphocytes Percent Auto 6.1 % (18.3-44.2); Mean Corpuscular HGB Conc 30.1 g/dl (32-36); Mean Corpuscular Volume 92.9 fl (80-100); Mean Platelet Volume 9.6 fl (7.4-10.4); Monocytes Absolute Auto 1.5 K/mm3 (0.1-0.6); Monocytes Percent Auto 3.6 % (2.6-8.5); Neutrophils Absolute Auto 33.6 K/mm3 (1.3-6.7); Neutrophils Percent Auto 84.6 % (45.5-73.1); Nucleated Red Blood Cells Perc 0.2 % (0.0-0.2); Platelet Count Result 367 k/mm3 (150-375); Red Blood Count 4.82 M/mm3 (4.2-5.4); Red Cell Distribution Width 14.6 % (11.5-14.5); White Blood Count 39.8 K/mm3 (4.5-10.0)
[2023-07-07 05:00] LABS: Lactic Acid Reflex 1.6 mmol/L (0.7-2.0)
[2023-07-07 05:14] LABS: Troponin I < 0.012 ng/mL (0.000-0.034)
[2023-07-07 05:17] LABS: Alveolar/Arterial O2 Gradient 266.6 mmHg; Base Excess ABG -16.6 mEq/l (+/-2.0); Carboxyhemoglobin 0.3 % THb (0-2.0); Fractional Inspired Oxygen 100 %; HCO3 ABG 12.6 mEq/l (22.0-26.0); Methemoglobin ABG 0.6 %THb (0-1.5); Oxygen Content ABG 20.4 %vol (16.0-22.0); Oxygen Saturation ABG 99.7 % (95.0-100.0); Oxyhemoglobin 98.2 % THb (90.0-100.0); PCO2 ABG 42.3 mmHg (35.0-45.0); PO2 ABG 404.1 mmHg (80.0-100.0); PO2 FiO2 Ratio Arterial Blood 4.04 %; Reduced Hemoglobin 0.9 %THb (0-5.0)
[2023-07-07 05:27] LABS: Device VENTILATOR; Modified Allen's Test Pass; Site Drawn RIGHT RADIAL; pH ABG 7.093 (7.350-7.450)
[2023-07-07 05:28] LABS: Arterial Blood Gas PEEP 5 cmH2O; Arterial Blood Gas Tidal Volume 350 ml; Arterial Blood Gas Vent Mode CMV; Arterial Blood Gas Ventilator rate 26 /MIN
[2023-07-07 05:28] LABS: INR 1.3; Prothrombin Time 16.6 Seconds (11.1-14.7)
[2023-07-07 05:29] LABS: Partial Thromboplastin Time 42.1 Seconds (22.3-36.8)
[2023-07-07 05:36] LABS: Alanine Aminotransferase 59 U/L (6-35); Albumin Level 3.6 g/dL (3.5-5.1); Alkaline Phosphatase 297 U/L (38-126); Anion Gap 23 mmol/L (8-16); Aspartate Amino Transferase 110 U/L (14-36); Bilirubin,Total 1.1 mg/dL (0.2-1.3); Blood Urea Nitrogen 13 mg/dL (7-17); Calcium 9.7 mg/dL (8.4-10.2); Carbon Dioxide 9 mmol/L (22-30); Chloride 110 mmol/L (98-107); Estimated CRCL calculation 108 ml/min; Estimated Glomerular Filt Rate > 60; Glucose 169 mg/dL (65-110); Magnesium 2.3 mg/dL (1.6-2.3); Potassium 3.8 mmol/L (3.4-5.0); Sodium 142 mmol/L (137-145)
[2023-07-07] MEDS: dilTIAZem 100 MG/100 ML 100 MG/100 ML BAG IV CONT (05:45)
[2023-07-07 05:47] LABS: D Dimer 3.42 ug/mL (<0.48)
--- NOTE | 2023-07-07 05:47 | PM.CCN ---
Critical Care Event Note Summary Code activated: No Narrative: Nursing staff had called earlier in the evening as the patient was having tripoding respirations. The patient is albuterol inhaler had been stopped earlier in the evening for uncertain reasons. Nursing staff reported that he felt the patient was more anxious than anything. I did write for the patient's albuterol inhaler to be resumed. I did given order for patient have 1 dose of IV Ativan after which time patient did relax in seemed to be breathing easier. A couple of hours later the patient developed sudden increased distress and flipped into appeared to be AFib with RVR with heart rates between 160 and 200. This was confirmed with EKG. having increasing work of breathing again. But this time the patient was overtly stridorous with some end-expiratory wheezing as well. She denies any symptoms of feeling as if her tongue was swollen. She has marked work of breathing to the extent that she could not provide much information and was only shaking her head yes and no. She reported that she felt hot her face was slightly flushed. She had accessory muscle use and respiratory rate was in the upper 30s. Stat ABG was performed which demonstrated mild but new hypercarbia patient's previous ABG had demonstrated a metabolic acidosis with incomplete respiratory compensation. Repeat ABG at the time my evaluation demonstrated worsening acidosis with pH of 7.1 pCO2 45 in PO2 of 90. Patient was on a non-rebreather at the time of the evaluation. Patient received a nebulizer treatment, 1 dose of racemic epi and IV Decadron. The patient had been admitted to the hospital on the with COVID and a left-sided pneumonia which x-rays earlier in the day and demonstrated appear to be worsening from admission. Patient's white count had been elevated up into the 30s since admission. Blood cultures were obtained on the and are pending. Patient has been afebrile since presentation until following the rapid response. Given worsening ABG findings patient was moved to the ICU and intubated paring during the process of intubation the patient did have 1 L of gastric secretions suction from posterior oropharynx. Patient did have brief decline in oxygen saturations during intubation down to 66% but returned to sats of 92-99% within 2 minutes. EKG confirmed patient was in AFib RVR at the beginning of rapid response. Once patient was intubated and airway was stable a total of 3 doses of Lopressor given with improvement patient heart rate from down in the 180s to 200s down to the 150s 160s. After 3 doses of Lopressor AFib continued and patient was her Cardizem drip. Within a couple of hours of started Cardizem drip the patient converted back to sinus rhythm. Labs did demonstrate significant severe metabolic acidosis. Lactic acid level was normal so exact cause of acidosis treated IV pen pointed. Patient had been started on a bicarb drip earlier in the day but was only running at 50 mL an hour. This was increased to 125 mL an hour after transfer the ICU. The patient did receive multiple bicarb pushes (total of 4). Given new onset of AFib and 7 worsening respiratory status CTA of the chest abdomen pelvis was ordered stat to rule out pulmonary embolism. The patient's initial CT scan from the was negative for pulmonary embolism at that time but given the patient's significant acidosis in her no source and severe sudden decline in condition other underlying causes needed to be investigated. Echocardiogram has also been ordered to evaluate cardiac structure and function. Cardiac enzymes have been ordered to rule out of acute cardiac ischemia. Repeat ABG was obtained after intubation. Patient's PEA check continued to drop although pCO2 at improved slightly. Patient's tidal volume was adjusted from 350-380 and rate was increased from 26-28. The patient's FiO2 was weaned as her PO2 was 404. At no time was the patient actually h
[2023-07-07 05:53] LABS: Triglycerides 743 mg/dL (<150)
[2023-07-07] MEDS: VANCOMYCIN 1,250 MG/NS 250 ML 1,250 MG/250 ML BAG 166.67 MG IVPB ×2 (06:16→07:29)
--- NOTE | 2023-07-07 06:55 | ECG_ITS ---
Measurements Intervals [place] Rate: 96 P: 41 MI: 160 QRS: 28 QRSD: 118 T: 38 QT: 362 QTc: 460 Interpretive Statements SINUS RHYTHM INTRAVENTRICULAR CONDUCTION DELAY BORDERLINE R WAVE PROGRESSION, ANTERIOR LEADS BORDERLINE ECG COMPARED TO ECG 07/07/2023 02:59:15 SINUS RHYTHM NOW PRESENT INTRAVENTRICULAR CONDUCTION DELAY NOW PRESENT Electronically Signed On 07-07-2023 7:05:47 CDT by Miguel Benito D.O.
[2023-07-07] MEDS: PROPOFOL IV EMULSION 100 ML 26.4 MG IV CONT (07:15)
[2023-07-07] MEDS: REMDESIVIR 200 MG/NS 250 ML 200 MG/250 ML BAG 250 MG IVPB (07:29)
--- NOTE | 2023-07-07 08:07 | PC.NURSE ---
This patient, Lore Regan, was transferred to ICU 7 on 07/07/23 at 0300 for acute respiratory failure requiring intubation. Personal belongings sent with patient. Care transferred to Angelia PRITCHETT. Appropriate documentation sent with patient.
[2023-07-07] MEDS: MEROPENEM 1 GM/NS 100 ML 1 GM/100 ML BAG IVPB ×2 (08:30→18:48)
[2023-07-07] MEDS: LEVALBUTEROL NEB 1.25 MG/3 ML INHALATION ×3 (09:00→19:50)
[2023-07-07 10:05] LABS: Triglycerides 720 mg/dL (<150)
[2023-07-07] MEDS: FENTANYL 2,500MCG/NS250ML(*CRX 2,500 MCG/250 ML BAG IV CONT (10:10)
[2023-07-07] MEDS: PANTOPRAZOLE SODIUM IV 40 MG VIAL IV PUSH (10:11)
[2023-07-07] MEDS: MINERAL OIL/WHITE PETROLATUM OINTMENT 1 APPLIC EACH EYE ×2 (10:11→21:44)
[2023-07-07] MEDS: MIDAZOLAM 100MG/NS 100ML(*CRX) 100 MG/100 ML BAG IV CONT (10:31)
--- NOTE | 2023-07-07 10:40 | WPDCNINT ---
Assessment and Plan Assessment and plan (1) Acute respiratory failure: Code(s): J96.00 - Acute respiratory failure, unspecified whether with hypoxia or hypercapnia Status: Acute Assessment and Plan: Acute respiratory failure secondary to pneumonia which is most likely bacterial and possible COVID 19 Worsening hypoxia since admission requiring intubation. Chest x-ray ABG and ventilator settings reviewed this morning. Patient was on 50% FiO2 and increase PEEP to 8 Patient later in the day self-extubated and was emergently reintubated without any complication Repeat chest x-ray is pending I will repeat ABG also Patient had hypertriglyceridemia hence propofol has been discontinued and patient has been switched to Versed and fentanyl for sedation Bronchodilator Repeat CT chest is ordered to further evaluate pneumonia and pleural effusion Patient was earlier on Levaquin which was broadened by adding vancomycin and meropenem Blood and sputum cultures are ordered and pending Urine Legionella and pneumococcal antigen pending (2) Pleural effusion on left: Code(s): J90 - Pleural effusion, not elsewhere classified Status: Acute Assessment and Plan: Will get CT chest to further evaluate. May need thoracentesis (3) COVID-19: Code(s): U07.1 - COVID-19 Status: Acute Assessment and Plan: Patient is vaccinated against COVID-19 but did test positive for COVID-[address] findings suggestive more of a bacterial pneumonia arrived and COVID-19 pneumonia considering unilateral consolidation. Patient has been started on dexamethasone remdesivir which will be continued for now Isolation (4) Pneumonia: Code(s): J18.9 - Pneumonia, unspecified organism Status: Acute Assessment and Plan: See above (5) Atrial fibrillation with RVR: Code(s): I48.91 - Unspecified atrial fibrillation Status: Acute Assessment and Plan: Patient had a brief t episode of AFib with RVR after She received bronchodilators and racemic epi. She was started Cardizem infusion and patient converted to sinus rhythm quickly and I have discontinued Cardizem (6) Diabetes: Code(s): E11.9 - Type 2 diabetes mellitus without complications Status: Acute Assessment and Plan: Sliding scale insulin Start tube feeds Plan DVT prophylaxis -Lovenox Stress ulcer prophylaxis -Protonix Nutrition -start Tube Feeds Code Status - Full Code I spoke to patient's updated him patient's current status including worsening pneumonia and respiratory failure requiring intubation. Updated him with brief episode of AFib with RVR and plan to repeat CT scan today and current treatment plan. I answered all his questions. I also told him the patient was tested positive for COVID 19 and is currently receiving steroids and remdesivir Total Critical Care Time - 40 minutes Due to a high probability of clinically significant, life threatening deterioration, the patient required my highest level of preparedness to intervene emergently and I personally spent this critical care time directly and personally managing the patient. This critical care time included obtaining a history; examining the patient; pulse oximetry; ordering and review of studies; arranging urgent treatment with development of a management plan; evaluation of patient's response to treatment; frequent reassessment; and discussions with other providers. It was exclusive of separately billable procedures and treating other patients and teaching time. 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 She also re
[2023-07-07 11:21] LABS: Glucose Point of Care 165 mg/dl (65-105)
[2023-07-07] MEDS: ETOMIDATE 20 MG/10 ML AMPUL IV PUSH (11:45)
[2023-07-07] MEDS: ENOXAPARIN 40 MG/0.4 ML SYRINGE SUB-Q (11:58)
--- NOTE | 2023-07-07 12:03 | WPDPROCEDUR ---
Procedures Intubation Intubation Date: 07/07/23 Intubation Time: 11:45 Consent: Patient was intubated and self-extubated. Patient was hypoxic and respiratory distress and was emergently intubated Sedative: etomidate Mg given: 20 Paralytic: succinylcholine Mg given: 100 Laryngoscope: fiber optic video scope Assist device used: fiber optic device ET tube size: cuffed Tube secured depth (cm): 25 Tube secured location: lips Tube placement confirmation: visualized tube passing through cords, equal breath sounds bilaterally, no breath sounds over epigastrium and confirmation by capnometry Patient tolerated procedure: well Intubation complications: none
[2023-07-07] MEDS: MIDAZOLAM HCL (*CRX) 2 MG/2 ML VIAL 4 MG IV PUSH (12:08)
[2023-07-07] MEDS: fentaNYL CITRATE INJ (*CRX) 100 MCG/2 ML VIAL (12:09)
[2023-07-07 12:59] LABS: Alveolar/Arterial O2 Gradient 172.3 mmHg; Base Excess ABG -12.6 mEq/l (+/-2.0); Fractional Inspired Oxygen 45 %; HCO3 ABG 14.4 mEq/l (22.0-26.0); Oxygen Content ABG 16.9 %vol (16.0-22.0); Oxygen Saturation ABG 96.9 % (95.0-100.0); Oxyhemoglobin 96.1 % THb (90.0-100.0); PCO2 ABG 36.8 mmHg (35.0-45.0); PO2 ABG 106.7 mmHg (80.0-100.0); PO2 FiO2 Ratio Arterial Blood 2.37 %; Total Hemoglobin 12.4 g/dL (12.0-18.0)
[2023-07-07 13:03] LABS: Device VENTILATOR; Modified Allen's Test Pass; Site Drawn RIGHT RADIAL; pH ABG 7.209 (7.350-7.450)
[2023-07-07 13:04] LABS: Arterial Blood Gas PEEP 8 cmH2O; Arterial Blood Gas Tidal Volume 380 ml; Arterial Blood Gas Vent Mode CMV; Arterial Blood Gas Ventilator rate 28 /MIN
[2023-07-07] MEDS: SODIUM BICARBONATE 8.4% 150 MEQ in WATER, STERILE FOR INJECTION 950 ML 125 MEQ IV CONT ×2 (15:05→23:34)
[2023-07-07] MEDS: PERFLUTREN LIPID MICROSPHERES 1.5 ML VIAL DILUTED TO 10 ML TOTAL VOLUME IV PUSH (15:20)
--- NOTE | 2023-07-07 16:03 | IVDEFINITY ---
Prior to administration of IV Definity the patient was educated on the risks and benefits of the imaging enhancing agent including potential adverse side effects. The patient verbalized understanding. Allergies were verified. No exclusion criteria were identified and at least one of the following inclusion criteria were met: 1) physician request, 2) patient technically difficult to image (per the [place] [employer] guidelines of two or more segments not discernable within the apical view), or 3) questionable left ventricular function. ?
[2023-07-07 16:47] LABS: Glucose Point of Care 155 mg/dl (65-105)
[2023-07-07] MEDS: VANCOMYCIN 1,500 MG/NS 500 ML 1,500 MG/500 ML BAG 250 MG IVPB (18:48)
[2023-07-07] MEDS: levoFLOXacin 750 MG/D5W 150 ML 750 MG/150 ML BAG 100 MG IVPB (18:49)
--- NOTE | 2023-07-07 18:52 | PM.IMPN ---
Progress Note: A&P Assessment and Plan (1) Acute respiratory failure with hypoxia and hypercapnia: Code(s): J96.01 - Acute respiratory failure with hypoxia; J96.02 - Acute respiratory failure with hypercapnia Status: Acute (2) Endotracheally intubated: Code(s): Z97.8 - Presence of other specified devices Status: Acute (3) Atrial fibrillation with RVR: Code(s): I48.91 - Unspecified atrial fibrillation Status: Acute (4) Acute respiratory failure: Code(s): J96.00 - Acute respiratory failure, unspecified whether with hypoxia or hypercapnia Status: Acute (5) Pneumonia: Code(s): J18.9 - Pneumonia, unspecified organism Status: Acute (6) Anxiety: Code(s): F41.9 - Anxiety disorder, unspecified Status: Acute (7) Non-insulin dependent diabetes mellitus: Status: Acute (8) Left upper lobe pneumonia: Qualifiers: Pneumonia type: due to unspecified organism Qualified Code(s): J18.9 - Pneumonia, unspecified organism Code(s): J18.9 - Pneumonia, unspecified organism Status: Acute (9) Sepsis: Qualifiers: Sepsis acute organ dysfunction status: unspecified Sepsis type: sepsis due to unspecified organism Qualified Code(s): A41.9 - Sepsis, unspecified organism Code(s): A41.9 - Sepsis, unspecified organism Status: Acute (10) Abnormal urinalysis: Code(s): R82.90 - Unspecified abnormal findings in urine Status: Acute (11) Pleural effusion on left: Code(s): J90 - Pleural effusion, not elsewhere classified Status: Acute (12) Acidosis, lactic: Code(s): E87.20 - Acidosis, unspecified Status: Acute (13) COVID-19: Code(s): U07.1 - COVID-19 Status: Acute Plan Continue with critical care management in ICU Patient admitted with sepsis due to pneumonia and COVID-19 clinical deterioration overnight necessitating intubation Continue with ventilator support Patient is self-extubated earlier today and was emergently reintubated Continue with sedation through Versed and fentanyl Propofol discontinued due to hypertriglyceridemia Continue with IV antibiotics in the form of Levaquin, vancomycin and meropenem Follow-up chest CT scan by wafer polisher Continue with IV dexamethasone and IV remdesivir for COVID 19 Continue with COVID-19 isolation DC IV Cardizem drip as patient's brief episode of AFib with RVR has resolved Accu-Cheks qAC and qHS ordered with low-dose insulin coverage as per protocol Spoke with wafer polisher in detail about patient's management Time Spent With Patient Time with patient: 15 - 25 minutes Subjective Date/time seen: 07/07/23 18:52 Interval history: I took over patient's medical care this morning. Reviewed extensive events from last night. Spoke with the socket puller and wafer polisher about the patient. She is currently in ICU under wafer polisher management. Review of Systems Review of Systems: Unable to be obtained. Patient is intubated and sedated ROS unobtainable: Yes unobtainable due to endotracheal tube, unobtainable due to medical condition and unobtainable due to mental status Exam Narrative: PHYSICAL EXAMINATION: Vital signs: Please see the chart General physical exam: Patient is intubated and sedated Head/eyes: Atraumatic, EOMI, PERRLA ENT: Moist mucous membranes, nasal passages clear Neck: Supple, full range of motion, trachea midline CVS: S1 + S2, regular rate and rhythm, no murmurs Respiratory: Bilaterally poor air entry in both lung john, ++ scattered bilateral rhonchi, + ET tube in place with vent support Abdomen: Soft, non-tender, bowel sounds +ve, no organomegaly Extremities: No clubbing, no cyanosis, no edema, no calf tenderness Musculoskeletal: Unable to be obtained. Patient is intubated and sedated Skin: Warm, dry, no jaundice, no cyanosis Neurological: Unable to be obtained. Patient is intubated and sedated Psychiatric:
[2023-07-08] VITALS (41 sets, daily range): BP systolic 101–127; BP diastolic 55–96; PULSE 92–128; RESP 17–35; TEMP 36.4–37.4; O2SAT 94–99
[2023-07-08] MEDS: MEROPENEM 1 GM/NS 100 ML 1 GM/100 ML BAG IVPB ×3 (00:27→17:08)
[2023-07-08 00:32] LABS: Glucose Point of Care 158 mg/dl (65-105)
[2023-07-08] MEDS: LEVALBUTEROL NEB 1.25 MG/3 ML INHALATION ×3 (01:22→20:19)
[2023-07-08 05:10] LABS: Alveolar/Arterial O2 Gradient 151.5 mmHg; Base Excess ABG -10.4 mEq/l (+/-2.0); Carboxyhemoglobin 0.3 % THb (0-2.0); Fractional Inspired Oxygen 45 %; HCO3 ABG 14.9 mEq/l (22.0-26.0); Methemoglobin ABG 0.4 %THb (0-1.5); Oxygen Content ABG 17.2 %vol (16.0-22.0); Oxygen Saturation ABG 98.4 % (95.0-100.0); Oxyhemoglobin 97.5 % THb (90.0-100.0); PCO2 ABG 31.5 mmHg (35.0-45.0); PO2 ABG 133.5 mmHg (80.0-100.0); PO2 FiO2 Ratio Arterial Blood 2.97 %; Reduced Hemoglobin 1.8 %THb (0-5.0); Total Hemoglobin 12.4 g/dL (12.0-18.0)
[2023-07-08 05:11] LABS: Arterial Blood Gas PEEP 8 cmH2O; Arterial Blood Gas Vent Mode CMV; Arterial Blood Gas Ventilator rate 28 /MIN; Device VENTILATOR; Modified Allen's Test Pass; Site Drawn RIGHT RADIAL; pH ABG 7.293 (7.350-7.450)
[2023-07-08 05:12] LABS: Arterial Blood Gas Tidal Volume 380 ml
[2023-07-08 05:14] LABS: Estimated CRCL calculation 108 ml/min; Estimated Glomerular Filt Rate > 60
[2023-07-08] MEDS: VANCOMYCIN 1,500 MG/NS 500 ML 1,500 MG/500 ML BAG 250 MG IVPB ×2 (06:48→18:49)
[2023-07-08] MEDS: dexAMETHasone SOD PHOS INJ 10 MG/ML 1 ML VIAL 6 MG IV PUSH (06:49)
[2023-07-08 06:53] LABS: Hematocrit 35.1 % (37.0-47.0); Hemoglobin 10.9 g/dL (12.0-15.0); Mean Corpuscular HGB Conc 31.1 g/dl (32-36); Mean Corpuscular Hemoglobin 28.2 pg (26-34); Mean Corpuscular Volume 90.9 fl (80-100); Mean Platelet Volume 9.9 fl (7.4-10.4); Platelet Count Result 294 k/mm3 (150-375); Red Blood Count 3.86 M/mm3 (4.2-5.4); White Blood Count 21.4 K/mm3 (4.5-10.0)
[2023-07-08 07:16] LABS: Alanine Aminotransferase 57 U/L (6-35); Alkaline Phosphatase 250 U/L (38-126); Anion Gap 18 mmol/L (8-16); Aspartate Amino Transferase 43 U/L (14-36); Bilirubin,Total 0.4 mg/dL (0.2-1.3); Blood Urea Nitrogen 19 mg/dL (7-17); Calcium 9.2 mg/dL (8.4-10.2); Carbon Dioxide 13 mmol/L (22-30); Chloride 116 mmol/L (98-107); Estimated CRCL calculation 108 ml/min; Estimated Glomerular Filt Rate > 60; Glucose 174 mg/dL (65-110); Magnesium 2.3 mg/dL (1.6-2.3); Phosphorus 3.2 mg/dL (2.5-4.5); Potassium 2.8 mmol/L (3.4-5.0); Sodium 147 mmol/L (137-145)
[2023-07-08] MEDS: KCL 40 MEQ/WATER 100 ML 100 ML 25 ML IVPB (09:01)
[2023-07-08] MEDS: PANTOPRAZOLE SODIUM IV 40 MG VIAL IV PUSH (09:02)
[2023-07-08] MEDS: SODIUM BICARBONATE TAB 650 MG TABLET 1300 MG FEED TUBE ×2 (09:02→17:09)
[2023-07-08] MEDS: ENOXAPARIN 40 MG/0.4 ML SYRINGE SUB-Q (09:02)
[2023-07-08] MEDS: POTASSIUM CHLORIDE 20 MEQ PACKET (FOR LIQUID) 40 MEQ FEED TUBE (09:02)
[2023-07-08] MEDS: MINERAL OIL/WHITE PETROLATUM OINTMENT 1 APPLIC EACH EYE ×2 (09:02→22:14)
[2023-07-08] MEDS: SODIUM BICARBONATE 8.4% 150 MEQ in WATER, STERILE FOR INJECTION 950 ML 125 MEQ IV CONT ×2 (09:10→17:08)
[2023-07-08] MEDS: FENTANYL 2,500MCG/NS250ML(*CRX 2,500 MCG/250 ML BAG 10 MCG IV CONT (09:17)
[2023-07-08] MEDS: MIDAZOLAM 100MG/NS 100ML(*CRX) 100 MG/100 ML BAG 6 MG IV CONT (09:21)
[2023-07-08] MEDS: REMDESIVIR 100 MG/NS 250 ML 100 MG/250 ML BAG 250 MG IVPB (11:46)
--- NOTE | 2023-07-08 11:48 | PCNFU ---
Nutrition Follow-Up Complete: Inadequate Energy Expenditure as related to mechanical ventilation as evidenced by NPO. goal: Meet estimated nutritional needs Patient will continue current goal. Not meeting goal at this time. Pt current nutrition is Vital AF 1.2. Nutrition recommendation: goal rate at this time 45 ml/hr. Last recorded weight is 110 kg, stable Bowel Motility:No BM reported Labs Reviewed:Glu 174, K 2.8, Na 147, Alb 3.0, Hct 35.1,Hgb 10.9. Meds Noted:Fentanyl, Versed, Protonix, Remdesivir, Protonix, Vancomycin. Skin: WNL Additional Notes: Patient remains on mechanical vent. COVID +. Tube feedings to start on Vital AF 1.2 at 20 ml/hr advance by 10 ml q 4 hours to goal rate of 45 ml/hr. Tube feedings at goal rate providing 1188 kcals/74 gms protein/803 ml water (meeting 100% kcal needs at 70% caloric needs and 56 % protein needs at 1.2-1.4 gm/kg.) Flush 30 ml q 4hours. Will watch Na level for recommendations on water flush. Agree with diet orders at this time. Will monitor weight, labs, skin, meds, tube feeding tolerance every Friday and Friday.
[2023-07-08 12:25] LABS: Glucose Point of Care 190 mg/dl (65-105)
--- NOTE | 2023-07-08 13:01 | WPDINTPN ---
Progress Note: A&P Assessment and Plan (1) Acute respiratory failure: Code(s): J96.00 - Acute respiratory failure, unspecified whether with hypoxia or hypercapnia Status: Acute Assessment and Plan: Acute respiratory failure secondary to pneumonia which is most likely bacterial and possible COVID 19 -07/06: Worsening hypoxia since admission requiring intubation -07/06: Self extubated and was really intubated emergently without any complications - Chest x-ray and ABGs reviewed, ventilator adjusted. Currently on peep of 8 and 45% FiO2 -Patient had hypertriglyceridemia hence propofol has been discontinued and patient has been switched to Versed and fentanyl for sedation -will repeat triglyceride levels every 48 hours -continue bronchodilator -will add Mucomyst and Pulmozyme 07/07 CTA chest abdomen and pelvis Large left pleural effusion, significantly increased from prior exam. Extensive left lung consolidation as well as focal right upper lobe consolidation. Findings could reflect pneumonia and/or atelectasis. Pulmonary edema felt to be less likely given distribution, though not excluded. No pulmonary embolus identified. No significant findings in the abdomen or pelvis. Patient on Levaquin, vancomycin and meropenem (07/06) 07/06: Blood cultures negative x2 -sputum cultures are pending -Urine Legionella and pneumococcal antigen pending (2) Pleural effusion on left: Code(s): J90 - Pleural effusion, not elsewhere classified Status: Acute Assessment and Plan: CTA chest as above with large left pleural effusion significantly increased from prior exam -will monitor pleural effusion, if he does not resolved more decrease, patient will require thoracentesis by Interventional Radiolog (3) COVID-19: Code(s): U07.1 - COVID-19 Status: Acute Assessment and Plan: Patient is vaccinated against COVID-19 but did test positive for COVID-[address] findings, procalcitonin , chest x-ray, leukocytosis, all are suggestive of a bacterial infection. -patient has tested positive for COVID-19, considering unilateral consolidation. Patient is started on dexamethasone, remdesivir is -Patient has been started on dexamethasone, remdesivir which will be continued for now -continue droplet and contact isolation (4) Pneumonia: Code(s): J18.9 - Pneumonia, unspecified organism Status: Acute Assessment and Plan: See above (5) Atrial fibrillation with RVR: Code(s): I48.91 - Unspecified atrial fibrillation Status: Acute Assessment and Plan: Patient had a brief t episode of AFib with RVR after She received bronchodilators and racemic epi. She was started Cardizem infusion and patient converted to sinus rhythm quickly -Cardizem has been discontinued, patient currently in sinus rhythm -continue to monitor (6) Diabetes: Code(s): E11.9 - Type 2 diabetes mellitus without complications Status: Acute Assessment and Plan: Continue sliding scale insulin, Accu-Cheks, -start tube feeds Plan DVT prophylaxis -Lovenox Stress ulcer prophylaxis -Protonix Nutrition -will start tube feeds today Code Status - Full Code Total Critical Care Time -36 minute Discussed with patient's and mother dated them with patient's condition plan of care. I did show the the x-rays, answered all the questions. That she will be started tube feeds and she is on antibiotics. The aware that she has COVID-19 is on steroids and Remdesivir. They are aware that patient is positive for COVID and will have to be on isolation. I answered all questions Due to a high probability of clinically significant, life threatening deterioration, the patient required my highest level of preparedness to intervene emergently and I personally spent this critical care time directly and personally managing the patient. This critical care time included obtaining a history; examining the patie
[2023-07-08 13:47] LABS: Triglycerides 429 mg/dL (<150)
[2023-07-08] MEDS: ACETYLCYSTEINE 20% INHAL SOLN 800 MG/4 ML VIAL 200 MG INHALATION ×2 (14:19→20:20)
--- NOTE | 2023-07-08 15:19 | PM.IMPN ---
Progress Note: A&P Assessment and Plan (1) Acute respiratory failure: Code(s): J96.00 - Acute respiratory failure, unspecified whether with hypoxia or hypercapnia Status: Acute (2) Pleural effusion on left: Code(s): J90 - Pleural effusion, not elsewhere classified Status: Acute (3) COVID-19: Code(s): U07.1 - COVID-19 Status: Acute (4) Pneumonia: Code(s): J18.9 - Pneumonia, unspecified organism Status: Acute (5) Atrial fibrillation with RVR: Code(s): I48.91 - Unspecified atrial fibrillation Status: Acute (6) Diabetes: Code(s): E11.9 - Type 2 diabetes mellitus without complications Status: Acute Plan 42-year-old female with past medical history [id number] diabetes mellitus, anxiety presents with the sudden onset of back pain and pleuritic chest pain.?In the [facility] she was found to have a left upper lobe pneumonia and small left pleural effusion by way of CTA of chest abdomen pelvis.? Found to have leukocytosis with bandemia, lactic acidosis, anion gap metabolic acidosis, transaminitis, elevated CRP, elevated proBNP.? Urinalysis abnormal although contaminated.? COVID positive. 1. Acute respiratory failure: Patient currently intubated, mechanically ventilated Mechanical ventilation as per assembly adjuster Continue with vanc meropenem, levofloxacin Continue with remdesivir, dexamethasone for COVID Follow blood cultures 2. Transient AFib: Currently in sinus rhythm 3. DVT prophylaxis: Lovenox 4. Code status: Full 5. Disposition: Pending improvement Time Spent With Patient Time with patient: 15 - 25 minutes Subjective Date/time seen: 07/08/23 15:19 Interval history: Intubated Review of Systems Review of Systems: ROS unobtainable: Yes unobtainable due to endotracheal tube Exam Narrative: General: Pt is sedated, intubated and on mechanical ventilation HEENT: Pupils are equal and reactive Lungs/Chest: Trachea central Coarse BS B/L, No crackles or wheezing. Breath sounds are decreased on the left side as compared to right Cardiac: RRR. Normal S1 S2. No murmurs Circulation: Pedal pulses are intact and symmetrical. Abdomen: Decreased bowel sounds. Obese. Soft. NT. ND. Extremities: No clubbing, cyanosis or edema. Warm : Baires in place Neurologic: Unable to assess due to sedation. . Objective Data Vital Signs Vital Signs: Vital Signs - 24 hr 07/07/23 15:46 07/07/23 15:46 07/07/23 16:00 Temperature 97.5 F L Pulse Rate 98 85 95 Respiratory Rate 34 H 32 H Blood Pressure 94/40 L Pulse Oximetry 98 98 Oxygen Delivery Mechanical Ventilation Fraction of Inspired Oxygen 45 07/07/23 17:16 07/07/23 18:11 07/07/23 18:00 Temperature Pulse Rate 93 106 H 100 Respiratory Rate Blood Pressure Pulse Oximetry 98 97 Oxygen Delivery Mechanical Ventilation Mechanical Ventilation Fraction of Inspired Oxygen 45 45 07/07/23 19:51 07/07/23 20:09 07/07/23 20:08 Temperature Pulse Rate 95 95 98 Respiratory Rate 32 H 31 H Blood Pressure Pulse Oximetry 98 Oxygen Delivery Mechanical Ventilation Fraction of Inspired Oxygen 45 07/07/23 20:00 07/07/23 20:00 07/07/23 20:00 Temperature 97.2 F L Pulse Rate 95 95 95 Respiratory Rate 31 H 28 H Blood Pressure 114/67 Pulse Oximetry 98 98 Oxygen Delivery Mechanical Ventilation Fraction of Inspired Oxygen 45 07/07/23 23:34 07/07/23 22:00 07/07/23 22:00 Temperature 97.4 F L Pulse Rate 92 93 94 Respiratory Rate 32 H Blood Pressure 116/63 Pulse Oximetry 97 97 Oxygen Delivery Mechanical Ventilation Fraction of Inspired Oxygen 45 07/08/23 00:00 07/08/23 00:00 07/08/23 00:00 Temperature 97.5 F L Pulse Rate 92 92 101 H Respiratory Rate 32 H 28 H Blood Pressure 114/96 H Pulse Oximetry 97 96 Oxygen Delivery Mechanical Ventilation Fraction of Inspired Oxygen 45 07/08/23 01:22 07/08/23 01:23 0
[2023-07-08 17:12] LABS: Vancomycin Trough 10.4 ug/mL (10.0-20.0)
[2023-07-08 18:37] LABS: Glucose Point of Care 247 mg/dl (65-105)
[2023-07-08] MEDS: INSULIN ASPART (*BKC) 100 UNITS/ML SUB-Q ×2 (18:50→23:45)
[2023-07-08] MEDS: levoFLOXacin 750 MG/D5W 150 ML 750 MG/150 ML BAG 100 MG IVPB (18:51)
--- NOTE | 2023-07-08 19:32 | PM.CNPUL ---
Assessment and Plan Assessment and plan (1) Acute respiratory failure: Qualifiers: Respiratory failure complication: hypoxia Qualified Code(s): J96.01 - Acute respiratory failure with hypoxia Code(s): J96.00 - Acute respiratory failure, unspecified whether with hypoxia or hypercapnia Status: Acute Assessment and Plan: (2) Pleural effusion on left: Code(s): J90 - Pleural effusion, not elsewhere classified Status: Acute Assessment and Plan: (3) Acidosis, lactic: Code(s): E87.20 - Acidosis, unspecified Status: Acute Assessment and Plan: (4) COVID-19: Code(s): U07.1 - COVID-19 Status: Acute Assessment and Plan: Plan She has a combination of conditions that are life threatening. Her infiltrate and effusion are more pronounced on the left. COVID pneumonia tends to be more diffuse. She has a secondary bacterial process, well covered with Vancomycin, Levaquin, Meropenem. Ur pneumococcal antigen is negative; Legionella antigen is pending. * Respiratory pathogen panel; I will send this panel. She may get worse, and having an extended spectrum panel may help identify the pathogen Avoid bronchoscopy unless absolutely necessary. She has COVID, we do not want to spread this. * Mucolytics; she is on Mucomyst and Dornase lokesh. If she does not have secretions recovered from her ETT after using for 2 days, we will stop dornase lokesh and maybe Mucomyst as well. * Continue broad coverage. * Her hyperchloremic metabolic acidosis will improve with bicarb drip, no excessive amounts of nasal saline. * electrolyte replacement * no change in her vent settings; she is improving on what you are doing with CMV * We will continue to follow with you. Thank you fro the consultation. History of Present Illness History of Present Illness Consult date: 07/08/23 Requesting physician: Naima Haddad MD Chief complaint: Sepsis/Pneumonia Narrative: Patient is seen in ICU #7 July 07 at 19:35 NEW: Lore Regan is a 42-year-old healthy female admitted July 03 with sepsis, developed worsening resp distress, metabolic acidosis with the development of atrial fibrillation with rapid ventricular response. She was managed with a diltiazem drip which has been weaned off. She has not required pressors. She is intubated 07/06, self extubated, re-intubated easily; has worsening effusion on the left side with infiltrate. Serology is (+) for SARS-Co-V2, now on isolation. Antibiotics were adjusted for severe pneumonia, currently on vancomycin, Levaquin and meropenem. Initially the infiltrate within the left upper lobe and it was smaller. On admission the chloride was normal. Over the last several days, her chloride increased, now it is 116; hyperchloremic metabolic acidosis. She is currently on a bicarbonate drip 125 ml per hour to correct the metabolic hyperchloremic acidosis, versed at 5 mg/hour, fentanyl at 100 mcg/hour. She is on TF Vital 1.5; she had a huge return on NG placement, 500 ml gastric fluid which was darker as the fluid returned. She is on ventilator support, no pressors, sedated without response on the ventilator. DATA * 07/08/2023 CTA chest : Large left pleural effusion, significantly increased from prior exam. Extensive left lung consolidation as well as focal right upper lobe consolidation. Findings could reflect pneumonia and/or atelectasis. Pulmonary edema felt to be less likely given distribution, though not excluded. No pulmonary embolus identified. No significant findings in the abdomen or pelvis. * 07/08/23 sodium 147, potassium 2.8, chloride 116, HC03 13, BUN 18, creatinine 0.7, glucose 174, calcium 7
[2023-07-08 19:51] LABS: Pneumococcal Antigen Urine Not Detected (Not Detected)
[2023-07-08] MEDS: DORNASE ALFA INH SOLN 1 MG/ML 2.5 ML AMP 2.5 MG INHALATION (20:20)
--- NOTE | 2023-07-08 20:56 | PC.NURSE ---
The patient's , Kory, called and was updated on the patient's condition. He expressed gratitude and notified this RN that he would be back here in the morning for updates from Dr. Haddad and the day shift team.
[2023-07-09] VITALS (44 sets, daily range): BP systolic 116–149; BP diastolic 66–84; PULSE 70–127; RESP 18–32; TEMP 36.9–38.1; O2SAT 90–100
[2023-07-09] MEDS: MEROPENEM 1 GM/NS 100 ML 1 GM/100 ML BAG IVPB ×3 (01:43→17:12)
[2023-07-09 01:47] LABS: Legionella pneumophila Ag Ur Not Detected (Not Detected)
[2023-07-09] MEDS: MIDAZOLAM 100MG/NS 100ML(*CRX) 100 MG/100 ML BAG 7 MG IV CONT (01:53)
[2023-07-09] MEDS: FENTANYL 2,500MCG/NS250ML(*CRX 2,500 MCG/250 ML BAG 20 MCG IV CONT ×2 (01:54→14:10)
[2023-07-09] MEDS: VANCOMYCIN 1,500 MG/NS 500 ML 1,500 MG/500 ML BAG 250 MG IVPB ×2 (01:56→09:01)
[2023-07-09] MEDS: LEVALBUTEROL NEB 1.25 MG/3 ML INHALATION ×4 (02:34→20:37)
[2023-07-09] MEDS: ACETYLCYSTEINE 20% INHAL SOLN 800 MG/4 ML VIAL 200 MG INHALATION ×4 (02:35→20:37)
[2023-07-09] MEDS: SODIUM BICARBONATE 8.4% 150 MEQ in WATER, STERILE FOR INJECTION 950 ML 125 MEQ IV CONT (03:35)
[2023-07-09 03:42] LABS: Glucose Point of Care 266 mg/dl (65-105)
[2023-07-09 05:08] LABS: Hematocrit 30.2 % (37.0-47.0); Hemoglobin 9.6 g/dL (12.0-15.0); Mean Corpuscular HGB Conc 31.8 g/dl (32-36); Mean Platelet Volume 9.9 fl (7.4-10.4); Platelet Count Result 279 k/mm3 (150-375); Red Blood Count 3.43 M/mm3 (4.2-5.4); Red Cell Distribution Width 14.9 % (11.5-14.5); White Blood Count 13.3 K/mm3 (4.5-10.0)
[2023-07-09 05:35] LABS: Alanine Aminotransferase 35 U/L (6-35); Albumin Level 2.7 g/dL (3.5-5.1); Alkaline Phosphatase 186 U/L (38-126); Anion Gap 12 mmol/L (8-16); Aspartate Amino Transferase 27 U/L (14-36); Bilirubin,Total 0.4 mg/dL (0.2-1.3); Blood Urea Nitrogen 27 mg/dL (7-17); Calcium 8.4 mg/dL (8.4-10.2); Carbon Dioxide 22 mmol/L (22-30); Chloride 119 mmol/L (98-107); Estimated CRCL calculation 96 ml/min; Estimated Glomerular Filt Rate > 60; Glucose 290 mg/dL (65-110); Magnesium 2.6 mg/dL (1.6-2.3); Phosphorus 2.3 mg/dL (2.5-4.5); Potassium 2.8 mmol/L (3.4-5.0); Sodium 153 mmol/L (137-145)
[2023-07-09] MEDS: dexAMETHasone SOD PHOS INJ 10 MG/ML 1 ML VIAL 6 MG IV PUSH (05:47)
[2023-07-09] MEDS: INSULIN ASPART (*BKC) 100 UNITS/ML SUB-Q ×4 (05:47→23:45)
[2023-07-09 05:49] LABS: Alveolar/Arterial O2 Gradient 137.2 mmHg; Base Excess ABG -2.8 mEq/l (+/-2.0); Carboxyhemoglobin 0.2 % THb (0-2.0); Fractional Inspired Oxygen 40 %; HCO3 ABG 21.7 mEq/l (22.0-26.0); Methemoglobin ABG 0.4 %THb (0-1.5); Oxygen Content ABG 15.4 %vol (16.0-22.0); Oxygen Saturation ABG 97.8 % (95.0-100.0); Oxyhemoglobin 96.5 % THb (90.0-100.0); PCO2 ABG 36.7 mmHg (35.0-45.0); PO2 ABG 105.8 mmHg (80.0-100.0); PO2 FiO2 Ratio Arterial Blood 2.64 %; Reduced Hemoglobin 2.9 %THb (0-5.0); Total Hemoglobin 11.2 g/dL (12.0-18.0)
[2023-07-09 05:51] LABS: Device VENTILATOR; Modified Allen's Test Pass; Site Drawn RIGHT RADIAL
[2023-07-09 05:52] LABS: Arterial Blood Gas PEEP 8 cmH2O; Arterial Blood Gas Tidal Volume 380 ml; Arterial Blood Gas Vent Mode CMV; Arterial Blood Gas Ventilator rate 28 /MIN
[2023-07-09] MEDS: DORNASE ALFA INH SOLN 1 MG/ML 2.5 ML AMP 2.5 MG INHALATION ×2 (08:18→20:44)
[2023-07-09 08:42] LABS: INR 1.3; Prothrombin Time 16.6 Seconds (11.1-14.7)
[2023-07-09] MEDS: POTASSIUM CHLORIDE INJ 40 MEQ in SODIUM CHLORIDE 0.9% IV 500 ML 130 MEQ IVPB (08:42)
[2023-07-09] MEDS: PANTOPRAZOLE SODIUM IV 40 MG VIAL IV PUSH (08:45)
[2023-07-09] MEDS: ENOXAPARIN 40 MG/0.4 ML SYRINGE SUB-Q (08:45)
[2023-07-09] MEDS: INSULIN GLARGINE (*BKC) 100 UNITS/ML 10 UNITS SUB-Q (08:45)
[2023-07-09] MEDS: MINERAL OIL/WHITE PETROLATUM OINTMENT 1 APPLIC EACH EYE ×2 (08:45→20:21)
[2023-07-09] MEDS: POTASSIUM/PHOSPHORUS/SODIUM 1.5 GM PACKET 1 PACKET PO (08:46)
[2023-07-09] MEDS: SODIUM BICARBONATE TAB 650 MG TABLET 1300 MG FEED TUBE ×2 (08:46→17:12)
--- NOTE | 2023-07-09 09:35 | WPDINTPN ---
Progress Note: A&P Assessment and Plan (1) Acute respiratory failure: Qualifiers: Respiratory failure complication: hypoxia Qualified Code(s): J96.01 - Acute respiratory failure with hypoxia Code(s): J96.00 - Acute respiratory failure, unspecified whether with hypoxia or hypercapnia Status: Acute Assessment and Plan: Acute respiratory failure secondary to pneumonia which is most likely bacterial and possible COVID 19 -07/06: Worsening hypoxia since admission requiring intubation -07/06: Self extubated and was really intubated emergently without any complications - Chest x-ray and ABGs reviewed, ventilator adjusted. Currently on peep of 8 and 40% FiO2 -sedated with fentanyl Versed infusion, propofol was discontinued due to hypertriglyceridemia -triglyceride is trending down -continue bronchodilator -continue Mucomyst and Pulmozyme 07/07 CTA chest abdomen and pelvis Large left pleural effusion, significantly increased from prior exam. Extensive left lung consolidation as well as focal right upper lobe consolidation. Findings could reflect pneumonia and/or atelectasis. Pulmonary edema felt to be less likely given distribution, though not excluded. No pulmonary embolus identified. No significant findings in the abdomen or pelvis. Patient on Levaquin, vancomycin and meropenem (07/06) 07/06: Blood cultures negative x2 -sputum cultures are pending -Urine Legionella and pneumococcal antigen pending (2) Pleural effusion on left: Code(s): J90 - Pleural effusion, not elsewhere classified Status: Acute Assessment and Plan: CTA chest as above with large left pleural effusion significantly increased from prior exam -will monitor pleural effusion, if he does not resolved more decrease, patient will require thoracentesis by Interventional Radiolog (3) COVID-19: Code(s): U07.1 - COVID-19 Status: Acute Assessment and Plan: Patient is vaccinated against COVID-19 but did test positive for COVID-[address] findings, procalcitonin , chest x-ray, leukocytosis, all are suggestive of a bacterial infection. -patient has tested positive for COVID-19, considering unilateral consolidation. Patient is started on dexamethasone, remdesivir is -continuen dexamethasone, remdesivir -continue droplet and contact isolation (4) Pneumonia: Code(s): J18.9 - Pneumonia, unspecified organism Status: Acute Assessment and Plan: See above (5) Atrial fibrillation with RVR: Code(s): I48.91 - Unspecified atrial fibrillation Status: Acute Assessment and Plan: Patient had a brief t episode of AFib with RVR after She received bronchodilators and racemic epi. She was started Cardizem infusion and patient converted to sinus rhythm quickly -Cardizem has been discontinued, patient currently in sinus rhythm -continue to monitor (6) Diabetes: Code(s): E11.9 - Type 2 diabetes mellitus without complications Status: Acute Assessment and Plan: Continue sliding scale insulin, Accu-Cheks, -started on tube feeds and tolerating -6 since starting tube feeds, blood sugars elevated, will start Lantus Plan DVT prophylaxis -Lovenox Stress ulcer prophylaxis -Protonix Nutrition -will start tube feeds today Code Status - Full Code Total Critical Care Time -33 minutes Discussed with patient's and mother dated them with patient's condition plan of care. I did show the the x-rays, answered all the questions. That she will be started tube feeds and she is on antibiotics. The aware that she has COVID-19 is on steroids and Remdesivir. They are aware that patient is positive for COVID and will have to be on isolation. I answered all questions Due to a high probability of clinically significant, life threatening deterioration, the patient required my highest level of preparedness to intervene emergently and I personally spent this critical care time
[2023-07-09] MEDS: REMDESIVIR 100 MG/NS 250 ML 100 MG/250 ML BAG 250 MG IVPB (09:55)
[2023-07-09 11:47] LABS: Glucose Point of Care 277 mg/dl (65-105)
--- NOTE | 2023-07-09 13:43 | PCFNICU ---
ICU Rounding Note: Pt current nutrition is Vital AF 1.2 at 45 ml/hr. Last recorded weight is 99.8 kg, down from 110 kg on admit. Bowel Motility: No BM reported at this time. Labs Reviewed:TG 429, Glu 290, K 2.8,Na 153, Alb 2.7 Meds Noted: Remdesivir, Decadron, Fentanyl, Versed, Lantus, Sodium Bicarb Skin: WNL Additional Notes: Patient remains on mechanical vent. Tube feedings are being tolerated of Vital AF 1.2 at 45 ml/hr. Recommend adding Protein Modulars for increased protein needs. orders for Prosource BID providing an additional 160 kcals and 40 gms protein. Agree with diet orders at this time. Following daily in ICU rounds. Will monitor weight, labs, skin, meds, tube feeding tolerance every Friday and Friday.
[2023-07-09] MEDS: MIDAZOLAM 100MG/NS 100ML(*CRX) 100 MG/100 ML BAG 8 MG IV CONT (14:08)
[2023-07-09 14:26] LABS: Anion Gap 8 mmol/L (8-16); Blood Urea Nitrogen 31 mg/dL (7-17); Calcium 8.6 mg/dL (8.4-10.2); Carbon Dioxide 24 mmol/L (22-30); Chloride 124 mmol/L (98-107); Estimated CRCL calculation 118 ml/min; Estimated Glomerular Filt Rate > 60; Glucose 321 mg/dL (65-110); Potassium 3.6 mmol/L (3.4-5.0); Sodium 156 mmol/L (137-145)
--- NOTE | 2023-07-09 14:31 | PC.NURSE ---
Notified Dr. Haddad of pt's BMP results. New order to increase tube feeding flushes to 75ml q4h and administer 40meq PO Potassium Chloride x1.
[2023-07-09] MEDS: POTASSIUM CHLORIDE 20 MEQ PACKET (FOR LIQUID) 40 MEQ FEED TUBE (14:55)
[2023-07-09] MEDS: levoFLOXacin 750 MG/D5W 150 ML 750 MG/150 ML BAG 100 MG IVPB (17:10)
[2023-07-09 17:30] LABS: Glucose Point of Care 297 mg/dl (65-105)
--- NOTE | 2023-07-09 17:48 | PM.IMPN ---
Progress Note: A&P Assessment and Plan (1) Acute respiratory failure with hypoxia and hypercapnia: Code(s): J96.01 - Acute respiratory failure with hypoxia; J96.02 - Acute respiratory failure with hypercapnia Status: Acute (2) Endotracheally intubated: Code(s): Z97.8 - Presence of other specified devices Status: Acute (3) Atrial fibrillation with RVR: Code(s): I48.91 - Unspecified atrial fibrillation Status: Acute (4) Acute respiratory failure: Qualifiers: Respiratory failure complication: hypoxia Qualified Code(s): J96.01 - Acute respiratory failure with hypoxia Code(s): J96.00 - Acute respiratory failure, unspecified whether with hypoxia or hypercapnia Status: Acute (5) Pneumonia: Code(s): J18.9 - Pneumonia, unspecified organism Status: Acute (6) Anxiety: Code(s): F41.9 - Anxiety disorder, unspecified Status: Acute (7) Non-insulin dependent diabetes mellitus: Status: Acute (8) Left upper lobe pneumonia: Qualifiers: Pneumonia type: due to unspecified organism Qualified Code(s): J18.9 - Pneumonia, unspecified organism Code(s): J18.9 - Pneumonia, unspecified organism Status: Acute (9) Sepsis: Qualifiers: Sepsis acute organ dysfunction status: unspecified Sepsis type: sepsis due to unspecified organism Qualified Code(s): A41.9 - Sepsis, unspecified organism Code(s): A41.9 - Sepsis, unspecified organism Status: Acute (10) Abnormal urinalysis: Code(s): R82.90 - Unspecified abnormal findings in urine Status: Acute (11) Pleural effusion on left: Code(s): J90 - Pleural effusion, not elsewhere classified Status: Acute (12) Acidosis, lactic: Code(s): E87.20 - Acidosis, unspecified Status: Acute (13) COVID-19: Code(s): U07.1 - COVID-19 Status: Acute Plan Continue with critical care management in ICU Patient admitted with sepsis due to pneumonia and COVID-19 clinical deterioration necessitating intubation Continue with ventilator support Patient is self-extubated on 07/07/2023 and was emergently reintubated Continue with sedation through Versed and fentanyl Propofol discontinued due to hypertriglyceridemia Continue with IV antibiotics in the form of Levaquin, vancomycin and meropenem Pulmonary consult given for evaluation and further treatment recommendations Continue with aggressive IV antibiotics for pneumonia Leukocytosis is slowly downtrending 39.8 -> 21.4 -> 13.3 Continue with IV dexamethasone and IV remdesivir for COVID 19 Continue with COVID-19 isolation DC IV Cardizem drip as patient's brief episode of AFib with RVR has resolved Accu-Cheks qAC and qHS ordered with low-dose insulin coverage as per protocol Further management recommendations as per recreational aide and Pulmonary Time Spent With Patient Time with patient: 15 - 25 minutes Subjective Date/time seen: 07/09/23 17:48 Interval history: Patient remains intubated and sedated. Managed closely by recreational aide Review of Systems Review of Systems: Unable to be obtained. Patient is intubated and sedated ROS unobtainable: Yes unobtainable due to endotracheal tube, unobtainable due to medical condition and unobtainable due to mental status Exam Narrative: PHYSICAL EXAMINATION: Vital signs: Please see the chart General physical exam: Patient is intubated and sedated Head/eyes: Atraumatic, EOMI, PERRLA ENT: Moist mucous membranes, nasal passages clear Neck: Supple, full range of motion, trachea midline CVS: S1 + S2, regular rate and rhythm, no murmurs Respiratory: Bilaterally poor air entry in both lung john, ++ scattered bilateral rhonchi, + ET tube in place with vent support Abdomen: Soft, non-tender, bowel sounds +ve, no organomegaly Extremities: No clubbing, no cyanosis, no edema, no calf tenderness Musculoskeletal: Unable to be obtained. Patient is i
[2023-07-09 18:08] LABS: Vancomycin Trough 13.6 ug/mL (10.0-20.0)
[2023-07-09] MEDS: VANCOMYCIN 1,750 MG/NS 500 ML 1,750 MG/500 ML BAG 250 MG IVPB (18:35)
[2023-07-10] VITALS (55 sets, daily range): BP systolic 107–152; BP diastolic 64–94; PULSE 70–113; RESP 22–34; TEMP 36.8–38.3; O2SAT 92–100
[2023-07-10 00:06] LABS: Glucose Point of Care 242 mg/dl (65-105)
[2023-07-10] MEDS: MEROPENEM 1 GM/NS 100 ML 1 GM/100 ML BAG IVPB ×3 (00:28→16:23)
[2023-07-10] MEDS: VANCOMYCIN 1,750 MG/NS 500 ML 1,750 MG/500 ML BAG 250 MG IVPB ×2 (01:22→09:05)
[2023-07-10] MEDS: ACETYLCYSTEINE 20% INHAL SOLN 800 MG/4 ML VIAL 200 MG INHALATION ×4 (02:19→20:35)
[2023-07-10] MEDS: LEVALBUTEROL NEB 1.25 MG/3 ML INHALATION ×4 (02:19→20:36)
[2023-07-10] MEDS: MIDAZOLAM 100MG/NS 100ML(*CRX) 100 MG/100 ML BAG 8 MG IV CONT (02:43)
[2023-07-10] MEDS: FENTANYL 2,500MCG/NS250ML(*CRX 2,500 MCG/250 ML BAG 20 MCG IV CONT (04:16)
[2023-07-10 04:33] LABS: Basophils Percent Auto 0.1 % (0.2-1.2); Hematocrit 31.7 % (37.0-47.0); Hemoglobin 9.9 g/dL (12.0-15.0); Immature Granulocyte Absolute 2.91 K/mm3 (0.00-0.031); Immature Granulocyte Percent A 21.4 % (0-0.5); Lymphocytes Absolute Auto 1.74 K/mm3 (0.9-3.2); Lymphocytes Percent Auto 12.8 % (18.3-44.2); Mean Corpuscular HGB Conc 31.2 g/dl (32-36); Mean Corpuscular Hemoglobin 28.1 pg (26-34); Mean Corpuscular Volume 90.1 fl (80-100); Mean Platelet Volume 9.9 fl (7.4-10.4); Monocytes Absolute Auto 1.3 K/mm3 (0.1-0.6); Monocytes Percent Auto 9.6 % (2.6-8.5); Neutrophils Absolute Auto 7.7 K/mm3 (1.3-6.7); Neutrophils Percent Auto 56.1 % (45.5-73.1); Nucleated Red Blood Cells Perc 0.1 % (0.0-0.2); Platelet Count Result 269 k/mm3 (150-375); Red Blood Count 3.52 M/mm3 (4.2-5.4); Red Cell Distribution Width 15.6 % (11.5-14.5); White Blood Count 13.6 K/mm3 (4.5-10.0)
[2023-07-10 04:46] LABS: Anion Gap 4 mmol/L (8-16); Blood Urea Nitrogen 33 mg/dL (7-17); Carbon Dioxide 29 mmol/L (22-30); Chloride 125 mmol/L (98-107); Estimated CRCL calculation 118 ml/min; Estimated Glomerular Filt Rate > 60; Glucose 302 mg/dL (65-110); Magnesium 2.9 mg/dL (1.6-2.3); Potassium 3.5 mmol/L (3.4-5.0); Sodium 158 mmol/L (137-145)
[2023-07-10] MEDS: INSULIN ASPART (*BKC) 100 UNITS/ML SUB-Q ×3 (05:21→18:17)
[2023-07-10] MEDS: dexAMETHasone SOD PHOS INJ 10 MG/ML 1 ML VIAL 6 MG IV PUSH (05:23)
[2023-07-10 06:27] LABS: Alveolar/Arterial O2 Gradient 158.9 mmHg; Base Excess ABG 1.2 mEq/l (+/-2.0); Carboxyhemoglobin 0.2 % THb (0-2.0); Fractional Inspired Oxygen 40 %; HCO3 ABG 25.8 mEq/l (22.0-26.0); Methemoglobin ABG 0.4 %THb (0-1.5); Oxygen Saturation ABG 95.8 % (95.0-100.0); Oxyhemoglobin 93.8 % THb (90.0-100.0); PCO2 ABG 41.2 mmHg (35.0-45.0); PO2 ABG 78.9 mmHg (80.0-100.0); PO2 FiO2 Ratio Arterial Blood 1.97 %; Reduced Hemoglobin 5.6 %THb (0-5.0); Total Hemoglobin 11.3 g/dL (12.0-18.0); pH ABG 7.415 (7.350-7.450)
[2023-07-10 06:28] LABS: Arterial Blood Gas Ventilator rate 28 /MIN; Device VENTILATOR; Modified Allen's Test Pass; Site Drawn RIGHT RADIAL
[2023-07-10 06:29] LABS: Arterial Blood Gas PEEP 8 cmH2O; Arterial Blood Gas Tidal Volume 380 ml; Arterial Blood Gas Vent Mode CMV
[2023-07-10 06:45] LABS: Glucose Point of Care 243 mg/dl (65-105)
[2023-07-10] MEDS: POTASSIUM CHLORIDE 20 MEQ PACKET (FOR LIQUID) 40 MEQ FEED TUBE ×2 (07:50→18:22)
[2023-07-10] MEDS: FUROSEMIDE INJ 40 MG/4 ML VIAL IV PUSH (07:50)
[2023-07-10] MEDS: MINERAL OIL/WHITE PETROLATUM OINTMENT 1 APPLIC EACH EYE ×2 (08:00→21:54)
[2023-07-10] MEDS: INSULIN GLARGINE (*BKC) 100 UNITS/ML 22 UNITS SUB-Q (08:00)
[2023-07-10] MEDS: PANTOPRAZOLE SODIUM IV 40 MG VIAL IV PUSH (08:00)
--- NOTE | 2023-07-10 08:00 | WPDINTPN ---
Progress Note: A&P Assessment and Plan (1) Acute respiratory failure: Qualifiers: Respiratory failure complication: hypoxia Qualified Code(s): J96.01 - Acute respiratory failure with hypoxia Code(s): J96.00 - Acute respiratory failure, unspecified whether with hypoxia or hypercapnia Status: Acute Assessment and Plan: Acute respiratory failure secondary to pneumonia which is most likely bacterial and possible COVID 19 -07/06: Worsening hypoxia since admission requiring intubation -07/06: Self extubated and was really intubated emergently without any complications - Chest x-ray and ABGs reviewed, ventilator adjusted. Currently on peep of 8 and 40% FiO2 -sedated with fentanyl Versed infusion, propofol was discontinued due to hypertriglyceridemia -triglyceride is trending down -continue bronchodilator -continue Mucomyst and Pulmozyme -seems to be volume overloaded, will diurese with Lasix x1 today 07/07 CTA chest abdomen and pelvis Large left pleural effusion, significantly increased from prior exam. Extensive left lung consolidation as well as focal right upper lobe consolidation. Findings could reflect pneumonia and/or atelectasis. Pulmonary edema felt to be less likely given distribution, though not excluded. No pulmonary embolus identified. No significant findings in the abdomen or pelvis. Patient on Levaquin, vancomycin and meropenem (07/06) 07/06: Blood cultures negative x2 07/07: sputum cultures with no growth -Urine Legionella and pneumococcal antigen not detected (2) Pleural effusion on left: Code(s): J90 - Pleural effusion, not elsewhere classified Status: Acute Assessment and Plan: CTA chest as above with large left pleural effusion significantly increased from prior exam -will monitor pleural effusion, if he does not resolved more decrease, patient will require thoracentesis by Interventional Radiology - diurese patient today (3) COVID-19: Code(s): U07.1 - COVID-19 Status: Acute Assessment and Plan: Patient is vaccinated against COVID-19 but did test positive for COVID-[address] findings, procalcitonin , chest x-ray, leukocytosis, all are suggestive of a bacterial infection. -patient has tested positive for COVID-19, considering unilateral consolidation. Patient is started on dexamethasone, remdesivir is -continuen dexamethasone, remdesivir -continue droplet and contact isolation (4) Pneumonia: Code(s): J18.9 - Pneumonia, unspecified organism Status: Acute Assessment and Plan: See above (5) Atrial fibrillation with RVR: Code(s): I48.91 - Unspecified atrial fibrillation Status: Acute Assessment and Plan: Patient had a brief episode of AFib with RVR after She received bronchodilators and racemic epi. She was started Cardizem infusion and patient converted to sinus rhythm quickly -Cardizem has been discontinued, patient currently in sinus rhythm -continue to monitor (6) Diabetes: Code(s): E11.9 - Type 2 diabetes mellitus without complications Status: Acute Assessment and Plan: Continue sliding scale insulin, Accu-Cheks, -started on tube feeds and tolerating - since starting tube feeds, blood sugars elevated, -increase Lantus (7) Electrolyte abnormality: Code(s): E87.8 - Other disorders of electrolyte and fluid balance, not elsewhere classified Status: Acute Assessment and Plan: Patient with hypokalemia, much improved after stopping bicarb infusion, will replete potassium today also Patient also hypernatremic, likely related to sodium bicarb infusion and pills, discontinued sodium bicarb infusion on 07/08, will discontinue sodium bicarb tablets today -increase tube feed flushes -monitor sodium levels with serial BMPs Plan DVT prophylaxis -Lovenox Stress ulcer prophylaxis -Protonix Nutrition -tolerating tube feeds at goal, positive bowel movements Code S
[2023-07-10] MEDS: ENOXAPARIN 40 MG/0.4 ML SYRINGE SUB-Q (08:01)
[2023-07-10] MEDS: DORNASE ALFA INH SOLN 1 MG/ML 2.5 ML AMP 2.5 MG INHALATION ×2 (08:58→20:36)
[2023-07-10] MEDS: REMDESIVIR 100 MG/NS 250 ML 100 MG/250 ML BAG 250 MG IVPB (10:41)
--- NOTE | 2023-07-10 11:05 | PCFNICU ---
ICU Rounding Note: Pt current nutrition is Vital AF 1.2 at 45 ml/hr. Last recorded weight is 117.5 kg, up from 110 kg on admit. Bowel Motility: +BM reported 07/09 Labs Reviewed: Na 158, BUN 33, Glu 302, Cr 0.6,Hct 31.7,Hgb 9.9 Meds Noted:Lantus, Protonix, Remdesivir, Vancomycin, Protonix, Lasix. Skin: WNL Additional Notes: Patient remains on a mechanical vent. Tube feedings are being tolerated of Vital AF 1.2 at 45 ml/hr (1188 kcals/74 gms protein/803 ml water). Flush increased from 75 ml to 150 ml q 4 hours. Na remains elevated. Protein Modulars are being given BID of Prosource providing an additional 160 kcals and 40 gms of protein. Agree with diet orders at this time. Following daily in ICU rounds. Will monitor weight, labs, skin, meds, tube feeding tolerance every Friday and Friday.
[2023-07-10] MEDS: VENLAFAXINE HCL 75 MG TABLET PO ×2 (11:46→21:47)
[2023-07-10 12:05] LABS: Glucose Point of Care 321 mg/dl (65-105)
[2023-07-10] MEDS: MIDAZOLAM 100MG/NS 100ML(*CRX) 100 MG/100 ML BAG 9 MG IV CONT (13:24)
[2023-07-10] MEDS: ACETAMINOPHEN ELIXIR 325 MG/10.15 ML UDC 650 MG PO ×2 (16:25→21:48)
[2023-07-10 17:58] LABS: Anion Gap 4 mmol/L (8-16); Blood Urea Nitrogen 35 mg/dL (7-17); Calcium 9.2 mg/dL (8.4-10.2); Carbon Dioxide 35 mmol/L (22-30); Chloride 123 mmol/L (98-107); Estimated CRCL calculation 129 ml/min; Estimated Glomerular Filt Rate > 60; Glucose 371 mg/dL (65-110); Potassium 3.7 mmol/L (3.4-5.0); Sodium 162 mmol/L (137-145); Vancomycin Trough 21.3 ug/mL (10.0-20.0)
--- NOTE | 2023-07-10 18:08 | PC.NURSE ---
Dr. Haddad notified of critical Sodium level. also updated on Potassium level. New orders received and entered by this RN
[2023-07-10] MEDS: levoFLOXacin 750 MG/D5W 150 ML 750 MG/150 ML BAG 100 MG IVPB (18:22)
[2023-07-10 18:37] LABS: Glucose Point of Care 331 mg/dl (65-105)
[2023-07-10] MEDS: dexmedeTOMIDine 400 MCG/100 ML 400 MCG/100 ML BAG 5.88 MCG IV CONT (23:03)
[2023-07-11] VITALS (53 sets, daily range): BP systolic 115–165; BP diastolic 60–99; PULSE 61–99; RESP 18–29; TEMP 38.3–39.2; O2SAT 90–100
[2023-07-11] MEDS: KETOROLAC 30 MG/ML VIAL (*BKC) IV PUSH (00:27)
[2023-07-11] MEDS: MEROPENEM 1 GM/NS 100 ML 1 GM/100 ML BAG IVPB ×3 (00:28→17:58)
[2023-07-11] MEDS: INSULIN ASPART (*BKC) 100 UNITS/ML SUB-Q ×4 (00:39→17:56)
[2023-07-11 01:01] LABS: Glucose Point of Care 308 mg/dl (65-105)
[2023-07-11] MEDS: MIDAZOLAM 100MG/NS 100ML(*CRX) 100 MG/100 ML BAG 9 MG IV CONT (01:39)
[2023-07-11] MEDS: VANCOMYCIN 1,500 MG/NS 500 ML 1,500 MG/500 ML BAG 250 MG IVPB ×2 (02:34→09:58)
[2023-07-11] MEDS: ACETAMINOPHEN ELIXIR 325 MG/10.15 ML UDC 650 MG PO ×4 (02:34→17:58)
[2023-07-11] MEDS: FENTANYL 2,500MCG/NS250ML(*CRX 2,500 MCG/250 ML BAG 10 MCG IV CONT (02:45)
[2023-07-11] MEDS: ACETYLCYSTEINE 20% INHAL SOLN 800 MG/4 ML VIAL 200 MG INHALATION ×4 (02:53→21:05)
[2023-07-11] MEDS: LEVALBUTEROL NEB 1.25 MG/3 ML INHALATION ×4 (02:54→21:05)
[2023-07-11 04:38] LABS: Basophils Absolute Auto 0.1 K/mm3 (0.0-0.1); Basophils Percent Auto 0.7 % (0.2-1.2); Hematocrit 32.1 % (37.0-47.0); Hemoglobin 9.7 g/dL (12.0-15.0); Immature Granulocyte Absolute 1.43 K/mm3 (0.00-0.031); Immature Granulocyte Percent A 12.2 % (0-0.5); Lymphocytes Absolute Auto 2.15 K/mm3 (0.9-3.2); Lymphocytes Percent Auto 18.4 % (18.3-44.2); Mean Corpuscular HGB Conc 30.2 g/dl (32-36); Mean Corpuscular Hemoglobin 27.9 pg (26-34); Mean Corpuscular Volume 92.2 fl (80-100); Mean Platelet Volume 10.5 fl (7.4-10.4); Monocytes Absolute Auto 0.8 K/mm3 (0.1-0.6); Monocytes Percent Auto 7.1 % (2.6-8.5); Neutrophils Absolute Auto 7.2 K/mm3 (1.3-6.7); Neutrophils Percent Auto 61.6 % (45.5-73.1); Nucleated Red Blood Cells Perc 0.3 % (0.0-0.2); Platelet Count Result 255 k/mm3 (150-375); Red Blood Count 3.48 M/mm3 (4.2-5.4); Red Cell Distribution Width 15.5 % (11.5-14.5); White Blood Count 11.7 K/mm3 (4.5-10.0)
[2023-07-11 04:49] LABS: INR 1.4; Prothrombin Time 17.8 Seconds (11.1-14.7)
[2023-07-11 04:52] LABS: Alanine Aminotransferase 27 U/L (6-35); Albumin Level 2.7 g/dL (3.5-5.1); Alkaline Phosphatase 141 U/L (38-126); Anion Gap 0 mmol/L (8-16); Aspartate Amino Transferase 22 U/L (14-36); Bilirubin,Total 0.4 mg/dL (0.2-1.3); Blood Urea Nitrogen 35 mg/dL (7-17); Calcium 9.2 mg/dL (8.4-10.2); Carbon Dioxide 32 mmol/L (22-30); Chloride 124 mmol/L (98-107); Estimated CRCL calculation 129 ml/min; Estimated Glomerular Filt Rate > 60; Glucose 380 mg/dL (65-110); Magnesium 2.5 mg/dL (1.6-2.3); Phosphorus 1.7 mg/dL (2.5-4.5); Potassium 3.6 mmol/L (3.4-5.0); Sodium 156 mmol/L (137-145); Triglycerides 148 mg/dL (<150)
[2023-07-11 05:01] LABS: Anisocytosis 1+; Hypochromasia 1+; Large Platelets Present; Platelet Estimate Adequate (Adequate); Schistocytes None Seen; Target Cells 1+
[2023-07-11] MEDS: dexAMETHasone SOD PHOS INJ 10 MG/ML 1 ML VIAL 6 MG IV PUSH (06:15)
[2023-07-11 06:21] LABS: Alveolar/Arterial O2 Gradient 142.3 mmHg; Base Excess ABG 6.7 mEq/l (+/-2.0); Carboxyhemoglobin 0.2 % THb (0-2.0); Fractional Inspired Oxygen 35 %; HCO3 ABG 28.7 mEq/l (22.0-26.0); Methemoglobin ABG 0.1 %THb (0-1.5); Oxygen Saturation ABG 95.9 % (95.0-100.0); Oxyhemoglobin 94.2 % THb (90.0-100.0); PCO2 ABG 32.9 mmHg (35.0-45.0); PO2 FiO2 Ratio Arterial Blood 1.97 %; Reduced Hemoglobin 5.5 %THb (0-5.0); Total Hemoglobin 13.1 g/dL (12.0-18.0)
[2023-07-11 06:23] LABS: pH ABG 7.558 (7.350-7.450)
[2023-07-11 06:26] LABS: Device VENTILATOR; Modified Allen's Test Pass; Site Drawn RIGHT RADIAL
[2023-07-11 06:27] LABS: Arterial Blood Gas PEEP 8 cmH2O; Arterial Blood Gas Tidal Volume 380 ml; Arterial Blood Gas Vent Mode CMV; Arterial Blood Gas Ventilator rate 28 /MIN
[2023-07-11 07:11] LABS: Glucose Point of Care 383 mg/dl (65-105)
[2023-07-11] MEDS: POTASSIUM CHLORIDE 20 MEQ PACKET (FOR LIQUID) 40 MEQ FEED TUBE (08:10)
[2023-07-11] MEDS: INSULIN GLARGINE (*BKC) 100 UNITS/ML 38 UNITS SUB-Q (08:12)
[2023-07-11] MEDS: PANTOPRAZOLE SODIUM IV 40 MG VIAL IV PUSH (08:12)
[2023-07-11] MEDS: VENLAFAXINE HCL 75 MG TABLET PO ×2 (08:13→20:22)
[2023-07-11] MEDS: DORNASE ALFA INH SOLN 1 MG/ML 2.5 ML AMP 2.5 MG INHALATION ×2 (08:23→21:07)
[2023-07-11 08:34] LABS: INR 1.4; Prothrombin Time 17.7 Seconds (11.1-14.7)
[2023-07-11] MEDS: MINERAL OIL/WHITE PETROLATUM OINTMENT 1 APPLIC EACH EYE ×2 (08:34→20:22)
[2023-07-11] MEDS: POTASSIUM/PHOSPHORUS/SODIUM 1.5 GM PACKET 1 PACKET FEED TUBE (08:34)
[2023-07-11 08:40] LABS: Albumin Level 2.8 g/dL (3.5-5.1); Glucose 415 mg/dL (65-110); Lactate Dehydrogenase 257 U/L (120-246)
[2023-07-11 08:57] LABS: Glucose Point of Care 330 mg/dl (65-105)
--- NOTE | 2023-07-11 09:02 | WPDINTPN ---
Progress Note: A&P Assessment and Plan (1) Acute respiratory failure: Qualifiers: Respiratory failure complication: hypoxia Qualified Code(s): J96.01 - Acute respiratory failure with hypoxia Code(s): J96.00 - Acute respiratory failure, unspecified whether with hypoxia or hypercapnia Status: Acute Assessment and Plan: Acute respiratory failure secondary to pneumonia which is most likely bacterial and possible COVID 19 -07/06: Worsening hypoxia since admission requiring intubation -07/06: Self extubated and was really intubated emergently without any complications - Chest x-ray and ABGs reviewed, ventilator adjusted. Currently on peep of 8 and 40% FiO2 -sedated with fentanyl Versed infusion, propofol was discontinued due to hypertriglyceridemia -triglycerides have normalized -continue bronchodilator -continue Mucomyst and Pulmozyme -07/09: Responded very well to diuresis -07/10: Spiked fevers overnight, with T-max of 102.3?. Given patient has a moderate left pleural effusion as seen on CT of the chest and chest x-ray, will have Interventional Radiology perform a thoracentesis, orders have been placed 07/07 CTA chest abdomen and pelvis Large left pleural effusion, significantly increased from prior exam. Extensive left lung consolidation as well as focal right upper lobe consolidation. Findings could reflect pneumonia and/or atelectasis. Pulmonary edema felt to be less likely given distribution, though not excluded. No pulmonary embolus identified. No significant findings in the abdomen or pelvis. Patient on Levaquin, vancomycin and meropenem (07/06) 07/06: Blood cultures negative x2 07/07: sputum cultures with no growth -Urine Legionella and pneumococcal antigen not detected (2) Pleural effusion on left: Code(s): J90 - Pleural effusion, not elsewhere classified Status: Acute Assessment and Plan: CTA chest as above with large left pleural effusion significantly increased from prior exam -will monitor pleural effusion, if he does not resolved more decrease, patient will require thoracentesis by Interventional Radiology -IR consulted for thoracentesis (3) COVID-19: Code(s): U07.1 - COVID-19 Status: Acute Assessment and Plan: Patient is vaccinated against COVID-19 but did test positive for COVID-[address] findings, procalcitonin , chest x-ray, leukocytosis, all are suggestive of a bacterial infection. -patient has tested positive for COVID-19, considering unilateral consolidation. Patient is started on dexamethasone, remdesivir is -continuen dexamethasone, remdesivir -continue droplet and contact isolation (4) Pneumonia: Code(s): J18.9 - Pneumonia, unspecified organism Status: Acute Assessment and Plan: See above (5) Atrial fibrillation with RVR: Code(s): I48.91 - Unspecified atrial fibrillation Status: Acute Assessment and Plan: Patient had a brief episode of AFib with RVR after She received bronchodilators and racemic epi. She was started Cardizem infusion and patient converted to sinus rhythm quickly -Cardizem has been discontinued, patient currently in sinus rhythm -continue to monitor (6) Diabetes: Code(s): E11.9 - Type 2 diabetes mellitus without complications Status: Acute Assessment and Plan: Continue sliding scale insulin, Accu-Cheks, -started on tube feeds and tolerating - since starting tube feeds, blood sugars elevated, -increase Lantus again today (7) Electrolyte abnormality: Code(s): E87.8 - Other disorders of electrolyte and fluid balance, not elsewhere classified Status: Acute Assessment and Plan: Patient with hypokalemia, much improved after stopping bicarb infusion, will replete potassium today also Patient also hypernatremic, likely related to sodium bicarb infusion and pills, discontinued sodium bicarb infusion on 07/08, -07/09: Sodium bicarbonate ta
[2023-07-11] MEDS: REMDESIVIR 100 MG/NS 250 ML 100 MG/250 ML BAG 250 MG IVPB (09:58)
[2023-07-11 11:21] LABS: Glucose Point of Care 349 mg/dl (65-105)
--- NOTE | 2023-07-11 11:31 | PCNFU ---
Nutrition Follow-Up Complete: Inadequate Energy Expenditure as related to mechanical ventilation as evidenced by NPO. Goal: Meet estimated nutritional needs Patient is progressing towards goal. We will continue current goal. Pt current nutrition is Vital AF 1.2. 45 ml/hr. Nutrition recommendation: Formula change to Glucerna 1.2 Last recorded weight is 106.5 kg, down from 110 kg on admit. Bowel Motility: +Bm reported 07/09 Labs Reviewed:Glu 380, Cr 0.6, BUN 35, NA 156 Meds Noted:Versed, Precedex, Fentanyl, Lantus, NovoLog, Protonix, Remdesivir, Decadron Skin: WNL Additional Notes: Patient remains on mechanical vent. Plans for Thoracentesis today and US of legs. Fevers noted. Tube feedings are being tolerated. Dermatologist would like formula change due to elevated blood sugar levels. MD orders for Glucerna 1.2 goal rate 60 ml/hr. Tube feeding providing 1584 kcals/79 gms protein/1063 ml water. Meeting 96% kcal needs at 15 kcal/kg and 60% protein needs at 1.2-1.4 gm/kg. Protein Modulars will continue of Prosource BID providing additional 160 kcals and 40 gms protein. Flush increased to 175 ml q 4 hours due to elevated Na level. Agree with diet orders.. Will monitor in ICU rounds and reassess weight, labs, skin, meds, tube feeding tolerance every Friday and Friday.
[2023-07-11] MEDS: dexmedeTOMIDine 400 MCG/100 ML 400 MCG/100 ML BAG 14.69 MCG IV CONT ×2 (11:45→20:23)
--- NOTE | 2023-07-11 14:01 | PM.PNPUL ---
Progress Note: A&P Assessment and Plan (1) Acute respiratory failure with hypoxia and hypercapnia: Code(s): J96.01 - Acute respiratory failure with hypoxia; J96.02 - Acute respiratory failure with hypercapnia Status: Acute Assessment and Plan: ? (2) Pleural effusion on left: Code(s): J90 - Pleural effusion, not elsewhere classified Status: Acute Assessment and Plan: (3) Acidosis, lactic: Code(s): E87.20 - Acidosis, unspecified Status: Acute Assessment and Plan: (4) COVID-19: Code(s): U07.1 - COVID-19 Status: Acute Assessment and Plan: Plan She has a combination of conditions that are life threatening. Her infiltrate and effusion are more pronounced on the left; reamins sedated with fentanyl and Versed, propofol stopped due to elevated triglycerides. She remains on Mucomyst and Pulmozyme to help eliminate secretions. She has responded to diuresis yet continues to have fevers up to 102.3. Plans noted for Interventional Radiology to obtain thoracentesis her Legionella and pneumococcal antigen are negative. She continues on treatment for COVID 19 including remdesivir and dexamethasone. Hypernatremia 162, currently managed by orange peel operator. Now off bicarb drip which will help. She remains on broad-spectrum coverage for secondary bacterial infections which frequently occur after viral infection. Her lactic acidosis resolved, now has respiratory alkalosis pH 7.558, pCO2 32.9 PO2 69 bicarbonate 28.7 on CMV rate 28, FiO2 35% which is lower, improved, tidal volume 380 peep 5 mode is CMV. Bicarbonate drip stopped. d/w Dr Haddad Subjective Date/time seen: 07/11/23 14:01 Interval history: hospital follow up in ICU 7; consult for acute hypoxemic respiratory failure, left pleural effusion, COVID pneumonia 07/08/2023 new pulmonary consult; Lore Regan is a 42-year-old healthy female admitted July 03 with sepsis, developed worsening resp distress, metabolic acidosis with the development of atrial fibrillation with rapid ventricular response.? She was managed with a diltiazem drip which has been weaned off.? She has not required pressors.? She is intubated 07/06, self extubated, re-intubated easily; has worsening effusion on the left side with infiltrate. Serology is (+) for SARS-Co-V2, now on isolation.? Antibiotics were adjusted for severe pneumonia, currently on vancomycin, Levaquin and meropenem.? Initially the infiltrate within the left upper lobe and it was smaller.? On admission the chloride was normal.? Over the last several days, her chloride increased, now it is 116; hyperchloremic metabolic acidosis. She is currently on a bicarbonate drip 125 ml per hour to correct the metabolic hyperchloremic acidosis, versed at 5 mg/hour, fentanyl at 100 mcg/hour. She is on TF Vital 1.5; she had a huge return on NG placement, 500 ml gastric fluid which was darker as the fluid returned. She is on ventilator support, no pressors, sedated without response on the ventilator. 07/10/2023; Spoke with Dr Haddad; she had an excellent diuresis yesterday, 7 Liters negative, oxygenation remains the same, not especially high O2 requirement but not better. She has fevers, now 102.1, without increase in pulse with spike in temperature. Now, temp is 102.1, and pulse is 76. She is on propofol which can slow heart rate, but her HR is the same now as when propofol was started this morning. Fevers do not respond to Tylenol, Toradol. 07/11/2023: Fever overnight, 102.3. Has had diuresis it still requires significant FiO2 DATA * 07/08/2023 CTA chest :?Large left pleural effusion, significantly increased from prior exam. Extensive left lung c
[2023-07-11 16:35] LABS: pH Pleural Fluid 7.197 (7.210-7.500)
[2023-07-11 17:16] LABS: Vancomycin Trough 20.2 ug/mL (10.0-20.0)
[2023-07-11 17:16] LABS: Glucose Point of Care 206 mg/dl (65-105)
[2023-07-11 17:44] LABS: Anion Gap 3 mmol/L (8-16); Blood Urea Nitrogen 37 mg/dL (7-17); Calcium 9.3 mg/dL (8.4-10.2); Carbon Dioxide 34 mmol/L (22-30); Chloride 125 mmol/L (98-107); Estimated CRCL calculation 122 ml/min; Estimated Glomerular Filt Rate > 60; Glucose 250 mg/dL (65-110); Potassium 4.1 mmol/L (3.4-5.0); Sodium 162 mmol/L (137-145)
[2023-07-11 17:45] LABS: Appearance Pleural Fluid Cloudy (Clear); Color Pleural Fluid Yellow (Colorless); Pleural fluid source Pleural fluid
[2023-07-11 17:46] LABS: Nucleated Cell Pleural Fluid 12040 /uL (0-1000)
[2023-07-11 17:51] LABS: Lymphocytes Pleural Fluid 14 %; Monocytes Pleural Fluid 3 %; Neutrophils Pleural Fluid 83 % (0-25)
[2023-07-11] MEDS: levoFLOXacin 750 MG/D5W 150 ML 750 MG/150 ML BAG 100 MG IVPB (17:55)
[2023-07-11] MEDS: INSULIN GLARGINE (*BKC) 100 UNITS/ML 20 UNITS SUB-Q (20:22)
[2023-07-12] VITALS (44 sets, daily range): BP systolic 104–153; BP diastolic 63–91; PULSE 55–104; RESP 18–31; TEMP 38.3–39; O2SAT 98–100
[2023-07-12] MEDS: ACETAMINOPHEN ELIXIR 325 MG/10.15 ML UDC 650 MG PO ×3 (00:19→11:18)
[2023-07-12 00:20] LABS: Glucose Point of Care 264 mg/dl (65-105)
[2023-07-12] MEDS: INSULIN ASPART (*BKC) 100 UNITS/ML SUB-Q ×3 (00:20→12:27)
[2023-07-12] MEDS: MEROPENEM 1 GM/NS 100 ML 1 GM/100 ML BAG IVPB ×2 (00:21→08:29)
[2023-07-12] MEDS: dexmedeTOMIDine 400 MCG/100 ML 400 MCG/100 ML BAG 17.63 MCG IV CONT (00:22)
[2023-07-12] MEDS: VANCOMYCIN 1,250 MG/NS 250 ML 1,250 MG/250 ML BAG 166.67 MG IVPB ×2 (02:09→10:37)
[2023-07-12] MEDS: LEVALBUTEROL NEB 1.25 MG/3 ML INHALATION ×2 (02:20→08:10)
[2023-07-12 03:53] LABS: Basophils Percent Auto 0.3 % (0.2-1.2); Hematocrit 33.9 % (37.0-47.0); Hemoglobin 10.4 g/dL (12.0-15.0); Immature Granulocyte Absolute 0.59 K/mm3 (0.00-0.031); Immature Granulocyte Percent A 6.1 % (0-0.5); Lymphocytes Absolute Auto 2.14 K/mm3 (0.9-3.2); Lymphocytes Percent Auto 22.2 % (18.3-44.2); Mean Corpuscular HGB Conc 30.7 g/dl (32-36); Mean Corpuscular Hemoglobin 27.9 pg (26-34); Mean Corpuscular Volume 90.9 fl (80-100); Mean Platelet Volume 10.2 fl (7.4-10.4); Monocytes Absolute Auto 0.6 K/mm3 (0.1-0.6); Monocytes Percent Auto 6.4 % (2.6-8.5); Neutrophils Absolute Auto 6.3 K/mm3 (1.3-6.7); Nucleated Red Blood Cells Perc 0.5 % (0.0-0.2); Platelet Count Result 197 k/mm3 (150-375); Red Blood Count 3.73 M/mm3 (4.2-5.4); Red Cell Distribution Width 15.5 % (11.5-14.5); White Blood Count 9.6 K/mm3 (4.5-10.0)
[2023-07-12 04:05] LABS: Alanine Aminotransferase 28 U/L (6-35); Alkaline Phosphatase 124 U/L (38-126); Anion Gap 7 mmol/L (8-16); Aspartate Amino Transferase 31 U/L (14-36); Bilirubin,Total 0.5 mg/dL (0.2-1.3); Blood Urea Nitrogen 34 mg/dL (7-17); Calcium 9.2 mg/dL (8.4-10.2); Carbon Dioxide 31 mmol/L (22-30); Chloride 121 mmol/L (98-107); Estimated CRCL calculation 122 ml/min; Estimated Glomerular Filt Rate > 60; Glucose 322 mg/dL (65-110); Magnesium 2.2 mg/dL (1.6-2.3); Phosphorus 5.8 mg/dL (2.5-4.5); Potassium 3.7 mmol/L (3.4-5.0); Sodium 159 mmol/L (137-145)
[2023-07-12 04:53] LABS: Alveolar/Arterial O2 Gradient 136.4 mmHg; Base Excess ABG 7.2 mEq/l (+/-2.0); Carboxyhemoglobin 0.3 % THb (0-2.0); Fractional Inspired Oxygen 35 %; HCO3 ABG 29.8 mEq/l (22.0-26.0); Methemoglobin ABG 0.4 %THb (0-1.5); Oxygen Content ABG 19.9 %vol (16.0-22.0); Oxygen Saturation ABG 96.1 % (95.0-100.0); Oxyhemoglobin 93.7 % THb (90.0-100.0); PCO2 ABG 35.5 mmHg (35.0-45.0); PO2 ABG 71.9 mmHg (80.0-100.0); PO2 FiO2 Ratio Arterial Blood 2.05 %; Reduced Hemoglobin 5.6 %THb (0-5.0); Total Hemoglobin 15.1 g/dL (12.0-18.0)
[2023-07-12 04:55] LABS: Modified Allen's Test Pass; Site Drawn LEFT RADIAL; pH ABG 7.542 (7.350-7.450)
[2023-07-12 04:56] LABS: Arterial Blood Gas PEEP 8 cmH2O; Arterial Blood Gas Tidal Volume 380 ml; Arterial Blood Gas Vent Mode CMV; Arterial Blood Gas Ventilator rate 24 /MIN; Device VENTILATOR
[2023-07-12] MEDS: dexAMETHasone SOD PHOS INJ 10 MG/ML 1 ML VIAL 6 MG IV PUSH (05:35)
[2023-07-12] MEDS: dexmedeTOMIDine 400 MCG/100 ML 400 MCG/100 ML BAG 23.5 MCG IV CONT (05:36)
[2023-07-12] MEDS: ACETYLCYSTEINE 20% INHAL SOLN 800 MG/4 ML VIAL 200 MG INHALATION (08:11)
[2023-07-12] MEDS: DORNASE ALFA INH SOLN 1 MG/ML 2.5 ML AMP 2.5 MG INHALATION (08:11)
--- NOTE | 2023-07-12 08:27 | WPDINTPN ---
Progress Note: A&P Assessment and Plan (1) Acute respiratory failure: Qualifiers: Respiratory failure complication: hypoxia Qualified Code(s): J96.01 - Acute respiratory failure with hypoxia Code(s): J96.00 - Acute respiratory failure, unspecified whether with hypoxia or hypercapnia Status: Acute Assessment and Plan: Acute respiratory failure secondary to pneumonia which is most likely bacterial and possible COVID 19 -07/06: Worsening hypoxia since admission requiring intubation -07/06: Self extubated and was really intubated emergently without any complications - Chest x-ray and ABGs reviewed, ventilator adjusted. Currently on peep of 8 and 40% FiO2 -sedated Precedex infusion only -triglycerides have normalized -continue bronchodilator -continue Mucomyst and Pulmozyme -07/09: Responded very well to diuresis -07/10: Spiked fevers overnight, with T-max of 102.3?. Given patient has a moderate left pleural effusion as seen on CT of the chest and chest x-ray, will have Interventional Radiology perform a thoracentesis, orders have been placed 07/10: Left-sided Thoracentesis with removal of 900 mL of cloudy yellow brown fluid, -pleural fluid with low pH likely related to empyema, elevated pleural WBCs, likely parapneumonic effusion or empyema, low pleural neutrophils reflective of empyema and/or parapneumonic effusion -07/11will obtain CT scan of the chest abdomen pelvis to evaluate if there is a trapped lung 07/07 CTA chest abdomen and pelvis Large left pleural effusion, significantly increased from prior exam. Extensive left lung consolidation as well as focal right upper lobe consolidation. Findings could reflect pneumonia and/or atelectasis. Pulmonary edema felt to be less likely given distribution, though not excluded. No pulmonary embolus identified. No significant findings in the abdomen or pelvis. Continue Levaquin, vancomycin and meropenem (07/06) 07/06: Blood cultures negative x2 07/07: sputum cultures with no growth -Urine Legionella and pneumococcal antigen not detected 07/10: Repeat blood cultures obtained and pending 07/10: Urine cultures have been ordered 07/10: Repeat sputum cultures 07/10: Pleural fluid cultures ordered and pending (2) Pleural effusion on left: Code(s): J90 - Pleural effusion, not elsewhere classified Status: Acute Assessment and Plan: CTA chest as above with large left pleural effusion significantly increased from prior exam -will monitor pleural effusion, if he does not resolved more decrease, patient will require thoracentesis by Interventional Radiology -07/10: Left-sided Thoracentesis with removal of 900 mL of cloudy yellow brown fluid, performed by IR (3) COVID-19: Code(s): U07.1 - COVID-19 Status: Acute Assessment and Plan: Patient is vaccinated against COVID-19 but did test positive for COVID-[address] findings, procalcitonin , chest x-ray, leukocytosis, all are suggestive of a bacterial infection. -patient has tested positive for COVID-19, considering unilateral consolidation. Patient is started on dexamethasone, remdesivir is -status post remdesivir 5 days -continue dexamethasone for 10 days -continue droplet and contact isolation (4) Pneumonia: Code(s): J18.9 - Pneumonia, unspecified organism Status: Acute Assessment and Plan: See above (5) Atrial fibrillation with RVR: Code(s): I48.91 - Unspecified atrial fibrillation Status: Acute Assessment and Plan: Patient had a brief episode of AFib with RVR after She received bronchodilators and racemic epi. She was started Cardizem infusion and patient converted to sinus rhythm quickly -Cardizem has been discontinued, patient currently in sinus rhythm -continue to monitor (6) Diabetes: Code(s): E11.9 - Type 2 diabetes mellitus without complications Status: Acute Assessment and Plan: Continue sliding scale insul
[2023-07-12] MEDS: MINERAL OIL/WHITE PETROLATUM OINTMENT 1 APPLIC EACH EYE (08:30)
[2023-07-12] MEDS: INSULIN GLARGINE (*BKC) 100 UNITS/ML 50 UNITS SUB-Q (08:30)
[2023-07-12] MEDS: PANTOPRAZOLE SODIUM IV 40 MG VIAL IV PUSH (08:30)
[2023-07-12] MEDS: VENLAFAXINE HCL 75 MG TABLET PO (08:31)
[2023-07-12] MEDS: BUMETANIDE INJ 1 MG/4 ML VIAL IV PUSH (09:20)
[2023-07-12] MEDS: dexmedeTOMIDine 400 MCG/100 ML 400 MCG/100 ML BAG 26.44 MCG IV CONT (09:22)
[2023-07-12] MEDS: MIDAZOLAM HCL (*CRX) 2 MG/2 ML VIAL IV PUSH (09:45)
[2023-07-12] MEDS: LORazepam INJ (*CRX) 2 MG/ML VIAL IV PUSH (10:35)
[2023-07-12 11:36] LABS: RBC Pleural Fluid 10000 /uL (0-0)
[2023-07-12 11:58] LABS: Glucose Point of Care 380 mg/dl (65-105)
[2023-07-12] MEDS: dexmedeTOMIDine 400 MCG/100 ML 400 MCG/100 ML BAG 32.31 MCG IV CONT (13:04)
[2023-07-12 13:30] LABS: Glucose Point of Care 408 mg/dl (65-105)
[2023-07-12] MEDS: MIDAZOLAM 100MG/NS 100ML(*CRX) 100 MG/100 ML BAG IV CONT (14:00)
[2023-07-12] MEDS: FENTANYL 2,500MCG/NS250ML(*CRX 2,500 MCG/250 ML BAG 10 MCG IV CONT (14:01)
[2023-07-12] MEDS: fentaNYL CITRATE INJ (*CRX) 100 MCG/2 ML VIAL IV PUSH (15:05)
--- NOTE | 2023-07-14 16:52 | PM.TDS ---
Transfer Discharge Sum: Prov Provider Date of admission: 07/06/23 14:17 Primary care physician: Mikaela Santizo, PHYSICIAN PRACTICE CONSULTANT Admitting clinician: Rossi Cochran MD Attending physician on admission: Rossi Cochran Consults: 07/07/23 Consult to Physician Routine Comment: Consulting Provider: Curly Mesa on call pharmacy technician/MD group to consult: [facility] Reason for consultation: Acute respiratory failure, severe metabolic acidosis Has provider been notified: Yes 07/08/23 08:17 Consult to Physician Routine Comment: Spoke with and notified her of consult Consulting Provider: Cassidy Christie on call pharmacy technician/MD group to consult: Pulmonology Reason for consultation: Left pleural effusion, pneumonia, respiratory failure Has provider been notified: Yes Attending physician on discharge: Rossi Cochran Discharging clinician: Rossi Cochran Anticipated date of transfer: 07/12/23 Receiving physician/facility: [facility] DS: Admitting Diagnosis Discharge Date 07/12/23 Admitting Diagnosis Pleuritic chest pain DS: Discharge Diagnosis Discharge Diagnosis (1) Pneumonia: Code(s): J18.9 - Pneumonia, unspecified organism Status: Acute (2) Acute respiratory failure with hypoxia and hypercapnia: Code(s): J96.01 - Acute respiratory failure with hypoxia; J96.02 - Acute respiratory failure with hypercapnia Status: Acute (3) COVID-19: Code(s): U07.1 - COVID-19 Status: Acute (4) Sepsis: Qualifiers: Sepsis acute organ dysfunction status: unspecified Sepsis type: sepsis due to unspecified organism Qualified Code(s): A41.9 - Sepsis, unspecified organism Code(s): A41.9 - Sepsis, unspecified organism Status: Acute (5) Endotracheally intubated: Code(s): Z97.8 - Presence of other specified devices Status: Acute Transfer Discharge Sum: Med Medications Active and Home Medications: Home Medications rosuvastatin 10 mg tablet 10 mg PO DAILY 07/19/21 [History Confirmed 07/04/23] venlafaxine 150 mg capsule,extended release 24 hr 150 mg PO DAILY 07/19/21 [History Confirmed 07/04/23] dulaglutide 4.5 mg/0.5 mL subcutaneous pen injector (Trulicity) 4 mg subcut DAILY 07/04/23 [History Confirmed 07/04/23] empagliflozin 25 mg tablet (Jardiance) 25 mg PO DAILY 07/04/23 [History Confirmed 07/04/23] Transfer Discharge Sum: Hosp Hospital Course Hospital course: Lore Regan is a 42 year old female with past medical history [id number] diabetes mellitus, anxiety presented with sudden onset of back pain and pleuritic chest pain. Admitted on 07/03 under the suspicion she had a pneumonia with small left pleural effusion COVID-19 positive and sepsis. On 07/06 rapid response called as patient was having tripoding respirations. Because of worsening ABG findings the patient was intubated. Continued to be treated by lure maker for acute respiratory failure likely related to bacterial and possible COVID-19 pneumonia. On 07/06 she self extubated and was emergently intubated again without any complications. She was also responding well to diuresis and given bronchodilators Pulmozyme and Mucomyst. Dexamethasone and remdesivir for COVID. On 07/10 the patient spiked fevers with a T-max of a 102.3? F and given the patient had a moderate left-sided pleural effusion as seen on CT and chest x-ray she underwent thoracentesis with Interventional Radiology. Results suggested likely empyema and therefore on 07/11 patient was transferred to [facility] for cardiothoracic surgery evaluation. She was in critical condition at the time. The patient was full code in her admission. Time Spent with Patient Time attestation: Total time spent providing and/or coordinating transfer services: Exam Const: Other: Sedated and intubated on mechanical ventilation Eyes: Sclera: sclerae normal Pupils: Equal, round and reactive pupils present Resp:
[2023-07-15 21:34] LABS: Glucose Pleural Fluid 254 mg/dL
[2023-07-16 19:40] LABS: Amylase, Pleural Fluid 20 U/L
[2023-07-17 20:43] LABS: LDH Pleural Fluid 7301 U/L; Total Protein Pleural Fluid 4.1 g/dL
[2023-07-18 09:03] LABS: Albumin Pleural Fluid 1.7 g/dL
== END 2023-07-12 15:13 | disposition short-term general hospital (02) | DRG 870 ==
LOC: ANHED 15:27 → ANH3MEDSUR 16:42 → ANHIMU 07-06 19:51 → ANHICU 07-07 03:24
PROVIDERS: Family Medicine; Internal Medicine; Nurse Practitioner; Physician Assistant; Admitting Provider General Practice; Emergency Provider Physician Assistant; PCP Nurse Practitioner Family; Visit Provider Internal Medicine
DX: A41.89 Other specified sepsis (principal); U07.1 COVID-19; J12.82 Pneumonia due to coronavirus disease 2019; J15.9 Unspecified bacterial pneumonia; J96.01 Acute respiratory failure with hypoxia; J96.02 Acute respiratory failure with hypercapnia; J86.9 Pyothorax without fistula; J90 Pleural effusion, not elsewhere classified; E87.0 Hyperosmolality and hypernatremia; Z68.41 Body mass index [BMI] 40.0-44.9, adult; E78.1 Pure hyperglyceridemia; E87.6 Hypokalemia; E11.9 Type 2 diabetes mellitus without complications; I48.91 Unspecified atrial fibrillation; F41.9 Anxiety disorder, unspecified; E66.9 Obesity, unspecified
CPT/HCPCS: 31500; 32555; 36415; 36600; 71045; 71250; 71275; 74174; 74176; 74177; 80048; 80053; 80202; 81025; 82040; 82042; 82150; 82375; 82565; 82728; 82805; 82945; 82947; 82948; 83050; 83605; 83615; 83690; 83735; 83880; 83986; 84100; 84145; 84155; 84157; 84311; 84478; 84484; 85025; 85027; 85380; 85610; 85730; 86140; 87015; 87040; 87070; 87075; 87086; 87102; 87116; 87205; 87206; 87449; 87637; 87641; 87899; 88108; 88184; 88305; 89051; 93005; 93970; 94002; 94003; 94640; 94667; 96361; 96365; 96372; 96374; 96375; 96376; 99213; 99285; A9270; C8929; C9113; G0378; G0463; J0248; J0330; J1100; J1170; J1200; J1650; J1815; J1885; J1939; J1940; J1956; J2060; J2185; J2250; J2270; J2405; J2543; J2550; J2704; J3010; J3370; J3480; J7030; J7040; J7050; J7070; Q9957; Q9967

== ENCOUNTER 2023-09-29 07:40 | Outpatient (CLI) | payer OTHER, SELFPAY ==
--- NOTE | ~2023-09-29 | MMUS_ITS ---
EXAMINATION: MM diagnostic marcello RT w river, US breast RT limited HISTORY: Palpable right breast abnormality TECHNIQUE: Additional 3-D tomosynthesis images of the right breast were performed and synthetic 2-D i mages were generated. CAD analysis was submitted and interpreted. High resolution Limited right breas t ultrasound was performed. COMPARISON: Comparison to multiple prior studies sequentially, with oldest reviewed study dated 01/10. BREAST PARENCHYMAL COMPOSITION: Not dense: There are scattered areas of fibroglandular density. FINDINGS: MAMMOGRAPHIC FINDINGS: There are no suspicious masses, calcifications or architectural distortion in the right breast to sug gest malignancy. ULTRASOUND: Limited right breast ultrasound: Normal heterogeneous echotexture without focal mass. IMPRESSION: 1. No evidence for malignancy in the right breast. 2. Routine yearly screening mammogram and regular clinical breast examination are recommended. BI-RADS CATEGORY 1 - NEGATIVE Reviewed, dictated and finalized at location B. IMPRESSION: 1. No evidence for malignancy in the right breast. 2. Routine yearly screening mammogram and regular clinical breast examination a re recommended. BI-RADS CATEGORY 1 - NEGATIVE
== END 2023-09-29 07:41 ==
LOC: MICIMG 07:41
PROVIDERS: PCP Nurse Practitioner Family; Visit Provider Nurse Practitioner Family
DX: S21.001A Unspecified open wound of right breast, initial encounter (principal); S20.01XA Contusion of right breast, initial encounter; X58.XXXA Exposure to other specified factors, initial encounter
CPT/HCPCS: 76642; 77061; 77065; G0279